=== PATIENT | male | born 1940 | race Caucasian/White ===

== ENCOUNTER 2021-08-17 11:20 | Emergency (ER) | payer OTHER ==
--- OUTSIDE RECORDS SUMMARY | 2021-08-17 11:34 | XMS REPORT | Continuity of Care Document ---
:1940 Author Organization [facility] t Address [address] [place] [address] Care Team Providers Name Role Phone Juana YODER Primary Care Physician Unavailable Goldfarb_R Attending Clinician Unavailable Jayleen Attending Clinician [phone] Lab, Fam Pob I Attending Clinician Unavailable Nyla FILTERATION OPERATOR Attending Clinician NYLA Attending Clinician Unavailable Goldfarb_R Admitting Clinician Unavailable Payers Payer Name Policy Type Policy Number Effective Date Expiration Date Bekah MENDIOLA (MEDICARE [id number] 2013 REPLACEMENT PPO) 00:00:00 COVID VACCINE ADMIN [id number] 2020-09-22 / TESTING 00:00:00 Problems This patient has no known problems. Allergies, Adverse Reactions, Alerts Allergy Allergy Status Severity Reaction(s) Onset Inactive Treating Comm ents Source Name Type Date Date Clinician No Known DA Active [facility] [place] [facility] 00:[facility]: [facility] No Known DA Active [facility]12 [place] [facility] NO KNOWN Drug Active Univers ALLERGIE Class it[facility] of [facility] Social History Social Habit Start Date Stop Date Quantity Comments Source Sex Assigned At Uni versity [facility] Smoking Status Start Date Stop Date Source Unknown if ever smoked [facility] Medications This patient has no known medications. Procedures This patient has no known procedures. Encounters Start End Encounter Admission Attending Care Care Encounter Source Date/Time Date/Time Type Type Clinicians Facility Department ID 2021-08-17 2021-08-17 Outpatient R [facility] [id number] 19:20:00 19:20:00 [facility] 2021-08-17 2021-08-17 Outpatient R [facility] [id number] [facility] 19:20:00 19:20:00 [id number] [facility] 2021-06-15 2021-06-15 Outpatient Goldfarb_R [facility] [id number] [place] 02:11:00 02:11:00 [id number] [facility] 2021-02-18 2021-02-18 Outpatient Goldfarb_R [facility] [id number] [place] 01:04:00 01:04:00 [id number] [facility] 2021-02-15 2021-02-15 Outpatient Goldfarb_R [facility] [id number] [place] 04:51:00 04:51:00 [id number] [facility] 2021-02-02 2021-02-02 Outpatient Goldfarb_R [facility] [id number] [place] 12:05:00 12:05:00 [id number] [facility] 2021-02-02 2021-02-02 Outpatient Jayleen, [facility]U [id number] 00:00:00 00:00:00 Elia [id number] 2021-01-03 2021-01-03 Outpatient Goldfarb_R [facility] [id number] [place] 11:10:00 11:10:00 [id number] [facility] 2021-01-03 2021-01-03 Outpatient Goldfarb_R [facility] [id number] [place] 11:10:00 11:10:00 [id number] [facility] 2020-12-21 2020-12-21 Outpatient Goldfarb_R [facility] [id number] [place] 05:36:00 05:36:00 [id number] [facility] 2020-12-21 2020-12-21 Outpatient Goldfarb_R HM[facility] [id number] [place] 05:36:00 05:36:00 [id number] [facility] 2020-12-21 2020-12-21 Outpatient Goldfarb_R HM[facility] 4255 [place] 05:36:00 05:36:00 [id number] [facility] 2020-12-02 2020-12-02 Outpatient Goldfarb_R HMU [facility] [id number] [place] 01:04:00 01:04:00 [id number] [facility] 2020-10-20 2020-10-20 Outpatient EL [facility] [id number] [facility] 00:00:00 00:00:00 2020-09-22 2020-09-22 Outpatient EL [facility] [id number] SLE 00:00:00 00:00:00 2020-08-22 2020-08-22 Laboratory Lab, [facility] Fam [facility]ob I [facility] 1.2. [id number] [facility] 18:22:28 18:42:28 [facility] [id number] [facility] [id number] Sid as Professio [phone] [place] [address] Office [address] 2020-08-22 2020-08-22 [facility] [id number] [facility] 18:40:00 18:40:00 [facility] Results Test Description Test Time Test Comments Results Result Comments Source GLUBED 2019-08-05 12:08:00 Test Item Value Reference Range Interpretation Comme nts GLUBED (test code = GLUBED) 147 mg/dL 60-125 H BASIC METABOLIC [id number] 07:15:00 Test Item Value Reference Range Interpretation Comments SODIUM (test code = 137 mmol/L 136-145 N NA) POTASSIUM (test code = 4.2 mmol/L 3.5-5.1 N K) CHLORIDE (test code = 101.0 mmol/L 98-107 N CL) CARBON DIOXIDE (test 25.7 mmol/L 21-32 N code = CO2) GLUCOSE (test code = 266 mg/dL 70-110 H GLU) BLOOD UREA NITROGEN 24 mg/dL 7-18 H (test code = BUN) GLOMERULAR FILTRATION 61.5 >60 Unit o f measure: RATE (test code = GFR) mL/mi n/1.73 [id number] Range:Healthy Adults >90 mL/min/1.73 m2 For Chronic Kidney Disease: St age II Mild Decrease in GFR 60-90 St age III Moderate Decrease in GFR 30-59 Stage IV Severe Decre ase in GFR 15- 29 Stage V Kidney Failure <15 CREATININE (test code 1.15 mg/dL 0.55-1.30 N = CREAT) CALCIUM (test code = 7.7 mg/dL 8.2-10.1 L CA) HGB [id number] 06:01:00 Test Item Value Reference Range Interpretation Comments HEMOGLOBIN (test code = HGB) 9.4 g/dL 12-16 L HEMATOCRIT (test code = HCT) 28.4 % 37-47 L [id number] 05:24:00 Test Item Value Reference Range Interpretation Comments GLUBED (test code = GLUBED) 258 mg/dL 60-125 H - XR PELVIS 1/2 [id number] 17:30:00 Patient Name: ANNALISE GODFREY Unit No: [id number] EXAMS: CPT CODE: [id number] XR PELVIS 1/2 VIEWS [id number] INTRAOPERATIVE LEG LENGTH FILM COMMENT: COMPARISON: Noprior exams available. In progress right hip replacement is noted. AP PORTABLE RIGHT HIP COMMENT: The patient is status post joint replacement which is articulating normally. at 1730 Reported and signed by: Christopher Cornejo MD CC: Sebastian Hernandez MD Technologist: REGINA RICH (RT.R) Transcribed D/ (1730) t.SDR.L [facility] NAME: ANNALISE GODFREY [address] [facility] PHYS: Sebastian Erazo MD : 1940 AGE: 78 SEX: M [place], [place] [address] LOC: Y.305 A PHONE #: [phone] EXAM DATE: 08/04/2019 STATUS: DIS IN FAX #: [phone] RAD #: D/C DT 08/05/2019 PAGE 1 Signed Report Patient Name: ANNALISE GODFREY Unit No: [id number] EXAMS: CPTCODE: [id number] XR PELVIS 1/2 VIEWS 41082 <Continued> Orig Print D/T: S: 08/06/2019 (0710) [facility] NAME: ANNALISE GODFREY [address] [facility] PHYS: Sebastian Erazo MD : 1940 AGE: 78 SEX: M [place], [place] [address] LOC: Y.305 A PHONE #: [phone] EXAM DATE: 08/04/2019 STATUS: DIS IN FAX #: [phone] RAD #: D/C DT 08/05/2019 PAGE 2 Signed Report- XR PELVIS 1/2 [id number] 17:30:00 Patient Name: ANNALISE GODFREY Unit No: [id number] EXAMS: CPT CODE: [id number] XR PELVIS 1/2 VIEWS 12799 INTRAOPERATIVE LEG LENGTH FILM COMMENT: COMPARISON: Noprior exams available. In progress right hip replacement is noted. AP PORTABLE RIGHT HIP COMMENT: The patient is status post joint replacement which is articulating normally. at 1730 Reported and signed by: Christopher Cornejo MD CC: Sebastian Hernandez MD Technologist: REGINA RICH (RT.R) Transcribed D/ (1970) tLowSDR.JCL [facility] NAME: ANNALISE GODFREY [address] [facility] PHYS: Sebastian Erazo MD : 1940 AGE: 78 SEX: M [place], [place] [address] LOC: Y.305 A PHONE #: [phone] EXAM DATE: 08/04/2019 STATUS: DIS IN FAX #: [phone] RAD #: D/C DT 08/05/2019 PAGE 1 Signed Report Patient Name: ANNALISE GODFREY Unit No: [id number] EXAMS: CPTCODE: [id number] XR PELVIS 1/2 VIEWS 47727 <Continued> Orig Print D/T: S: 08/06/2019 (0710) [facility] NAME: ANNALISE GODFREY [address] [facility] PHYS: Sebastian Erazo MD : 1940 AGE: 78 SEX: M [place], [place] [address] LOC: YSouth A PHONE #: [phone] EXAM DATE: 08/04/2019 STATUS: DIS IN FAX #: [phone] RAD #: D/C DT 08/05/2019 PAGE 2 Signed ReportGLYCOSYLATED HEMOGLOBIN (HA1C)2019-07-21 15:01:00 Test Item Value Reference Range Interpretation Comments GLYCOSYLATED 6.5 % 4.8-5.9 H Any condition t hat shortens HEMOGLOBIN (HA1C) erythocyte survival or (test code = GLYHGB) decreas esmean erythrocyte age (e.g., ben very from acute blood los s,hemolytic anemai) will fa lsely lower HGBA1c resultsr egardless of the method used . HGBA1c results frompat ients with HbSS, HbCC and HbSc must be interpreted wit hcaution given the patho logical processes, incl uding anemia,increase d red cell turnover, trans fusion requirements, t hatadversely impact HGBA1c a s a marker of long-term glycemiccontrol . Alternative for ms of testing such as fructosaminesho uld be considered for these patients.Any co ndition that shortens erytho cyte survival or dec reasesmean erythrocyte age (e.g., recovery from a cute blood loss,hemolytic anemia) will falsely lower H GBA1c resultsregardle ss of the method used. H GBA1c results from varun kirkpatrick HbSS, HbCC, and HbSc must be interpreted with cautiongiven th e pathological pr ocesses, including anemi a,increased red cell turnov er, transfusion req uirements, thatadversely i mpact HGBA1c as a marker of long-term glycemiccontrol . Alternative for ms of testing such as fructosaminesho uld be considered for these patients.DONE A T: [facility] [address] [place] [address] GLYCOSYLATED HEMOGLOBIN (HA1C)2019-07-21 15:01:00 Test Item Value Reference Range Interpretation Comments GLYCOSYLATED 6.5 % 4.8-5.9 H Any condition t hat shortens HEMOGLOBIN (HA1C) erythocyte survival or (test code = GLYHGB) decreas esmean erythrocyte age (e.g., ben very from acute blood los s,hemolytic anemia) will fa lsely lower HGBA1c resultsr egardless of the method used . HGBA1c results from varun kirkpatrick HbSS, HbCC, and HbSc must be interpreted with cautiongiven th e pathological pr ocesses, including anemi a,increased red cell turnov er, transfusion req uirements, thatadversely i mpact HGBA1c as a marker of long-term glycemiccontrol . Alternative for ms of testing such as fructosaminesho uld be considered for these patients. COMPREHENSIVE METABOLIC [id number] 13:00:00 Test Item Value Reference Range Interpretation Comments SODIUM (test code = 139 mmol/L 136-145 N NA) POTASSIUM (test code = 4.5 mmol/L 3.5-5.1 N K) CHLORIDE (test code = 101.0 mmol/L 98-107 N CL) CARBON DIOXIDE (test 24.6 mmol/L 21-32 N code = CO2) GLUCOSE (test code = 118 mg/dL 70-110 H GLU) BLOOD UREA NITROGEN 23 mg/dL 7-18 H (test code = BUN) GLOMERULAR FILTRATION 66.1 >60 Unit o f measure: RATE (test code = GFR) mL/mi n/1.73 [id number] Range:Healthy Adults >90 mL/min/1.73 m2 For Chronic Kidney Disease: St age II Mild Decrease in GFR 60-90 St age III Moderate Decrease in GFR 30-59 Stage IV Severe Decre ase in GFR 15- 29 Stage V Kidney Failure <15 CREATININE (test code 1.08 mg/dL 0.55-1.30 N = CREAT) TOTAL PROTEIN (test 7.2 g/dL 6.4-8.2 N code = PROT) ALBUMIN (test code = 3.9 g/dL 3.4-5.0 N ALB) GLOBULIN (test code = 3.3 g/dL 2.2-4.2 N GLOB) ALBUMIN/GLOBULIN RATIO 1.2 0.7-2.0 N (test code = A/G) CALCIUM (test code = 9.4 mg/dL 8.2-10.1 N CA) BILIRUBIN TOTAL (test 0.74 mg/dL 0.2-1.00 N code = BILT) SGOT/AST (test code = 24.0 U/L 15-37 N AST) SGPT/ALT (test code = 36.0 U/L 12-78 N Please note new ALT) normal range. ALKALINE PHOSPHATASE 60 U/L 46-116 N TOTAL (test code = ALKP) CBC W/AUTO [id number] 12:50:00 Test Item Value Reference Range Interpretation Comments WHITE BLOOD CELL (test code = WBC) 5.4 K/mm3 5.7-10.5 L RED BLOOD CELL (test code = RBC) 4.42 M/mm3 4.2-5.4 N HEMOGLOBIN (test code = HGB) 13.3 g/dL 12-16 N HEMATOCRIT (test code = HCT) 40.5 % 37-47 N MEAN CELL VOLUME (test code = MCV) 92 fL 80-98 N MEAN CELL HGB (test code = MCH) 30.1 pg 27-34 N MEAN CELL HGB CONCENTRATION (test 32.8 g/dL 30.8-34.1 N code = MCHC) RED CELL DISTRIBUTION WIDTH (test 13.2 % 11-16 N code = RDW) PLT (test code = PLT) 283 K/mm3 130-400 N MEAN PLATELET VOLUME (test code = 9.0 fL 8.9-12.1 N MPV) NEUTROPHIL % (test code = NT%) 65.4 % 45-70 N LYMPHOCYTE % (test code = LY%) 18.3 % 20-40 L MONOCYTE % (test code = MO%) 13.5 % 3-10 H EOSINOPHIL % (test code = EO%) 1.7 % 1-5 N BASOPHIL % (test code = BA%) 0.4 % 0.0-1.1 N NEUTROPHIL # (test code = NT#) 3.53 K/mm3 2.00-7.50 N LYMPHOCYTE # (test code = LY#) 0.99 K/mm3 1.50-4.00 L MONOCYTE # (test code = MO#) 0.73 K/mm3 0.2-0.8 N EOSINOPHIL # (test code = EO#) 0.09 K/mm3 0.04-0.4 N BASOPHIL # (test code = BA#) 0.02 K/mm3 0.02-0.10 N MANUAL DIFF REQUIRED (test code = NO MANUAL DIFF MDIFF) NUCLEATED RED BLOOD CELL (test 0 % 0-0 N code = NRBC) GLYCOSYLATED HEMOGLOBIN (HA1C)2019-04-07 19:03:00 Test Item Value Reference Range Interpretation Comments GLYCOSYLATED 6.6 % 4.8-5.9 H Any condition t hat shortens HEMOGLOBIN (HA1C) erythocyte survival or (test code = GLYHGB) decreas esmean erythrocyte age (e.g., ben very from acute blood los s,hemolytic anemai) will fa lsely lower HGBA1c resultsr egardless of the method used . HGBA1c results frompat ients with HbSS, HbCC and HbSc must be interpreted wit hcaution given the patho logical processes, incl uding anemia,increase d red cell turnover, trans fusion requirements, t hatadversely impact HGBA1c a s a marker of long-term glycemiccontrol . Alternative for ms of testing such as fructosaminesho uld be considered for these patients.Any co ndition that shortens erytho cyte survival or dec reasesmean erythrocyte age (e.g., recovery from a cute blood loss,hemolytic anemia) will falsely lower H GBA1c resultsregardle ss of the method used. H GBA1c results from varun burnettith HbSS, HbCC, and HbSc must be interpreted with cautiongiven th e pathological pr ocesses, including anemi a,increased red cell turnov er, transfusion req uirements, thatadversely i mpact HGBA1c as a marker of long-term glycemiccontrol . Alternative for ms of testing such as fructosaminesho uld be considered for these patients.DONE A T: [facility] [address] [place] [address] GLYCOSYLATED HEMOGLOBIN (HA1C)2019-04-07 19:02:00 Test Item Value Reference Range Interpretation Comments GLYCOSYLATED 6.6 % 4.8-5.9 H Any condition t hat shortens HEMOGLOBIN (HA1C) erythocyte survival or (test code = GLYHGB) decreas esmean erythrocyte age (e.g., ben very from acute blood los s,hemolytic anemia) will fa lsely lower HGBA1c resultsr egardless of the method used . HGBA1c results from varun kaya HbSS, HbCC, and HbSc must be interpreted with cautiongiven th e pathological pr ocesses, including anemi a,increased red cell turnov er, transfusion req uirements, thatadversely i mpact HGBA1c as a marker of long-term glycemiccontrol . Alternative for ms of testing such as fructosaminesho uld be considered for these patients. COMPREHENSIVE METABOLIC [id number] 16:42:00 Test Item Value Reference Range Interpretation Comments SODIUM (test code = 138 mmol/L 136-145 N NA) POTASSIUM (test code = 4.2 mmol/L 3.5-5.1 N K) CHLORIDE (test code = 101.0 mmol/L 98-107 N CL) CARBON DIOXIDE (test 27.2 mmol/L 21-32 N code = CO2) GLUCOSE (test code = 252 mg/dL 70-110 H GLU) BLOOD UREA NITROGEN 17 mg/dL 7-18 N (test code = BUN) GLOMERULAR FILTRATION 75.8 >60 Unit o f measure: RATE (test code = GFR) mL/mi n/1.73 [id number] Range:Healthy Adults >90 mL/min/1.73 m2 For Chronic Kidney Disease: St age II Mild Decrease in GFR 60-90 St age III Moderate Decrease in GFR 30-59 Stage IV Severe Decre ase in GFR 15- 29 Stage V Kidney Failure <15 CREATININE (test code 0.96 mg/dL 0.55-1.30 N = CREAT) TOTAL PROTEIN (test 6.8 g/dL 6.4-8.2 N code = PROT) ALBUMIN (test code = 3.8 g/dL 3.4-5.0 N ALB) GLOBULIN (test code = 3.0 g/dL 2.2-4.2 N GLOB) ALBUMIN/GLOBULIN RATIO 1.3 0.7-2.0 N (test code = A/G) CALCIUM (test code = 9.0 mg/dL 8.2-10.1 N CA) BILIRUBIN TOTAL (test 0.79 mg/dL 0.2-1.00 N code = BILT) SGOT/AST (test code = 19.0 U/L 15-37 N AST) SGPT/ALT (test code = 30.0 U/L 12-78 N Please note new ALT) normal range. ALKALINE PHOSPHATASE 56 U/L 46-116 N TOTAL (test code = ALKP) CBC W/AUTO [id number] 16:07:00 Test Item Value Reference Range Interpretation Comments WHITE BLOOD CELL (test code = WBC) 5.6 K/mm3 5.7-10.5 L RED BLOOD CELL (test code = RBC) 4.37 M/mm3 4.2-5.4 N HEMOGLOBIN (test code = HGB) 13.2 g/dL 12-16 N HEMATOCRIT (test code = HCT) 40.0 % 37-47 N MEAN CELL VOLUME (test code = MCV) 92 fL 80-98 N MEAN CELL HGB (test code = MCH) 30.2 pg 27-34 N MEAN CELL HGB CONCENTRATION (test 33.0 g/dL 30.8-34.1 N code = MCHC) RED CELL DISTRIBUTION WIDTH (test 13.3 % 11-16 N code = RDW) PLT (test code = PLT) 242 K/mm3 130-400 N MEAN PLATELET VOLUME (test code = 8.8 fL 8.9-12.1 L MPV) NEUTROPHIL % (test code = NT%) 68.1 % 45-70 N LYMPHOCYTE % (test code = LY%) 16.1 % 20-40 L MONOCYTE % (test code = MO%) 12.9 % 3-10 H EOSINOPHIL % (test code = EO%) 1.3 % 1-5 N BASOPHIL % (test code = BA%) 0.5 % 0.0-1.1 N NEUTROPHIL # (test code = NT#) 3.82 K/mm3 2.00-7.50 N LYMPHOCYTE # (test code = LY#) 0.90 K/mm3 1.50-4.00 L MONOCYTE # (test code = MO#) 0.72 K/mm3 0.2-0.8 N EOSINOPHIL # (test code = EO#) 0.07 K/mm3 0.04-0.4 N BASOPHIL # (test code = BA#) 0.03 K/mm3 0.02-0.10 N MANUAL DIFF REQUIRED (test code = NO MANUAL DIFF MDIFF) NUCLEATED RED BLOOD CELL (test 0 % 0-0 N code = NRBC) CBC W/AUTO [id number] 16:07:00 Test Item Value Reference Range Interpretation Comments WHITE BLOOD CELL (test code = WBC) 5.6 K/mm3 5.7-10.5 L RED BLOOD CELL (test code = RBC) 4.37 M/mm3 4.2-5.4 N HEMOGLOBIN (test code = HGB) 13.2 g/dL 12-16 N HEMATOCRIT (test code = HCT) 40.0 % 37-47 N MEAN CELL VOLUME (test code = MCV) 92 fL 80-98 N MEAN CELL HGB (test code = MCH) 30.2 pg 27-34 N MEAN CELL HGB CONCENTRATION (test 33.0 g/dL 30.8-34.1 N code = MCHC) RED CELL DISTRIBUTION WIDTH (test 13.3 % 11-16 N code = RDW) PLT (test code = PLT) 242 K/mm3 130-400 N MEAN PLATELET VOLUME (test code = 8.8 fL 8.9-12.1 L MPV) NEUTROPHIL % (test code = NT%) 68.1 % 45-70 N LYMPHOCYTE % (test code = LY%) 16.1 % 20-40 L MONOCYTE % (test code = MO%) 12.9 % 3-10 H EOSINOPHIL % (test code = EO%) 1.3 % 1-5 N BASOPHIL % (test code = BA%) 0.5 % 0.0-1.1 N NEUTROPHIL # (test code = NT#) 3.82 K/mm3 2.00-7.50 N LYMPHOCYTE # (test code = LY#) 0.90 K/mm3 1.50-4.00 L MONOCYTE # (test code = MO#) 0.72 K/mm3 0.2-0.8 N EOSINOPHIL # (test code = EO#) 0.07 K/mm3 0.04-0.4 N BASOPHIL # (test code = BA#) 0.03 K/mm3 0.02-0.10 N MANUAL DIFF REQUIRED (test code = NO MANUAL DIFF MDIFF) NUCLEATED RED BLOOD CELL (test 0 % 0-0 N code = NRBC)
--- NOTE | 2021-08-17 13:25 | ER ---
Nurse's Notes [facility] Name: Jensen Wang Age: 81 yrs Sex: Male : 1940 Arrival Date: 08/17/2021 Time: : Bed 11 Private MD: Jack Lopez Diagnosis: SARS-associated coronavirus as the cause of diseases classified elsewhere Presentation: 08/17 11:55 Chief complaint: Patient states: Sore throat and cough x 2 days. Coronavirus screen: jl7 cough unrelated to allergies, sore throat, Client presents with at least one sign or symptom that may indicate coronavirus-19. Standard/surgical mask placed on the client. Provider contacted for isolation considerations. Ebola Screen: No symptoms or risks identified at this time. Initial Sepsis Screen: Does the patient meet any 2 criteria? No. Patient's initial sepsis screen is negative. Does the patient have a suspected source of infection? No. Patient's initial sepsis screen is negative. Risk Assessment: Do you want to hurt yourself or someone else? Patient reports no desire to harm self or others. Onset of symptoms was August 15, 2021. Care prior to arrival: None. 11:55 Method Of Arrival: Ambulatory jl7 11:55 Acuity: EDWIN 4 jl7 Triage Assessment: 11:56 General: Appears in no apparent distress. uncomfortable, Behavior is calm, cooperative, jl7 appropriate for age. Pain: Denies pain. Neuro: Level of Consciousness is awake, alert, obeys commands, Oriented to person, place, time, situation. Cardiovascular: Patient's skin is warm and dry. Respiratory: Airway is patent Respiratory effort is even, unlabored, Respiratory pattern is regular, symmetrical. Derm: Skin is pink, warm \T\ dry. Historical: - Allergies: 11:56 No Known Allergies; jl7 - Home Meds: 11:56 metformin 1,000 mg Oral tab 1 tab 2 times per day [Active]; Celebrex 200 mg Oral cap 1 jl7 cap 2 times per day [Active]; glipizide 5 mg Oral tab 1 tab once daily [Active]; atorvastatin 10 mg oral tab 1 tab once daily [Active]; losartan 50 mg oral tab 1 tab once daily [Active]; hydrochlorothiazide 12.5 mg Oral cap 1 cap once daily [Active]; allopurinol 300 mg Oral tab 1 tab once daily [Active]; LithoLyte 10 mEq oral pwpk [Active]; megestrol 40 mg Oral tab 1 tab [Active]; - PMHx: 11:56 Diabetes mellitus; Hypercholesterolemia; Gout; Hypertensive disorder; jl7 - Immunization history:: Adult Immunizations up to date, Client reports receiving the 2nd dose of the Covid vaccine. - Social history:: Smoking status: Patient denies any tobacco usage or history of. Assessment: 13:34 Reassessment: Patient appears in no apparent distress at this time. Patient and/or ss family updated on plan of care and expected duration. Pain level reassessed. Patient is alert, oriented x 3, equal unlabored respirations, skin warm/dry/pink. Vital Signs: 11:55 BP 139 / 82; Pulse 89; Resp 17; Temp 97; Pulse Ox 99% on R/A; Weight 78.02 kg; Height 5 jl7 ft. 9 in. (175.26 cm); Pain 0/10; 11:55 Body Mass Index 25.40 (78.02 kg, 175.26 cm) jl7 ED Course: 11:23 Patient arrived in ED. mr 11:23 Jack Lopez MD is Private Physician. mr 11:55 London Pryor RN is Primary Nurse. jl7 11:56 Triage completed. jl7 11:56 Arm band placed on right wrist. jl7 11:57 Charbel Martines PA is PHCP. jr8 11:57 Jorge Alberto Monroe MD is Attending Physician. jr8 13:25 Jack Lopez MD is Referral Physician. jr8 13:34 No provider procedures requiring assistance completed. Patient did not have IV access ss during this emergency room visit. Administered Medications: No medications were administered Outcome: 13:25 Discharge ordered by . jr8 13:34 Discharged to home ambulatory. ss 13:34 Condition: good 13:34 Discharge instructions given to patient, Instructed on discharge instructions, follow up and referral plans. Demonstrated understanding of instructions, follow-up care, Prescriptions given X 2. 13:34 Patient left the ED. ss Signatures: JaffeSamantha mr TatumDestini, RN RN Charbel Martines PA PA jr8 London Pryor RN RN jl7
--- NOTE | 2021-08-17 13:25 | EDPHYS ---
Physician Documentation [facility] Name: Jensen Wang Age: 81 yrs Sex: Male : 1940 Arrival Date: 08/17/2021 Time: : Bed 11 Private MD: Jack Lopez ED Physician Jorge Alberto Monroe HPI: 08/17 12:57 This 81 yrs old Male presents to ER via Ambulatory with complaints of Flu Symptoms. jr8 12:57 The patient has not experienced similar symptoms in the past. The patient has not jr8 recently seen a physician. An 81-year-old male that presented to the emergency room with a few day history of flulike symptoms. Stated that he has rhinorrhea, postnasal congestion, cough, body aches, with subjective fevers.. Historical: - Allergies: 11:56 No Known Allergies; jl7 - Home Meds: 11:56 metformin 1,000 mg Oral tab 1 tab 2 times per day [Active]; Celebrex 200 mg Oral cap 1 jl7 cap 2 times per day [Active]; glipizide 5 mg Oral tab 1 tab once daily [Active]; atorvastatin 10 mg oral tab 1 tab once daily [Active]; losartan 50 mg oral tab 1 tab once daily [Active]; hydrochlorothiazide 12.5 mg Oral cap 1 cap once daily [Active]; allopurinol 300 mg Oral tab 1 tab once daily [Active]; LithoLyte 10 mEq oral pwpk [Active]; megestrol 40 mg Oral tab 1 tab [Active]; - PMHx: 11:56 Diabetes mellitus; Hypercholesterolemia; Gout; Hypertensive disorder; jl7 - Immunization history:: Adult Immunizations up to date, Client reports receiving the 2nd dose of the Covid vaccine. - Social history:: Smoking status: Patient denies any tobacco usage or history of. ROS: 12:57 Eyes: Negative for injury, pain, redness, and discharge, Neck: Negative for injury, jr8 pain, and swelling, Cardiovascular: Negative for chest pain, palpitations, and edema, Abdomen/GI: Negative for abdominal pain, nausea, vomiting, diarrhea, and constipation, Back: Negative for injury and pain, MS/Extremity: Negative for injury and deformity, Skin: Negative for injury, rash, and discoloration, Neuro: Negative for headache, weakness, numbness, tingling, and seizure. 12:57 Constitutional: Positive for body aches. 12:57 ENT: Positive for rhinorrhea, sinus congestion, sore throat. 12:57 Respiratory: Positive for cough, Negative for dyspnea on exertion, shortness of breath, sputum production, wheezing. Exam: 12:57 Eyes: Pupils equal round and reactive to light, extra-ocular motions intact. Lids and jr8 lashes normal. Conjunctiva and sclera are non-icteric and not injected. Cornea within normal limits. Periorbital areas with no swelling, redness, or edema. ENT: Nares patent. No nasal discharge, no septal abnormalities noted. Tympanic membranes are normal and external auditory canals are clear. Oropharynx with no redness, swelling, or masses, exudates, or evidence of obstruction, uvula midline. Mucous membranes moist. Neck: Trachea midline, no thyromegaly or masses palpated, and no cervical lymphadenopathy. Supple, full range of motion without nuchal rigidity, or vertebral point tenderness. No Meningismus. Cardiovascular: Regular rate and rhythm with a normal S1 and S2. No gallops, murmurs, or rubs. Normal PMI, no JVD. No pulse deficits. Respiratory: Lungs have equal breath sounds bilaterally, clear to auscultation and percussion. No rales, rhonchi or wheezes noted. No increased work of breathing, no retractions or nasal flaring. Abdomen/GI: Soft, non-tender, with normal bowel sounds. No distension or tympany. No guarding or rebound. No evidence of tenderness throughout. Back: No spinal tenderness. No costovertebral tenderness. Full range of motion. Skin: Warm, dry with normal turgor. Normal color with no rashes, no lesions, and no evidence of cellulitis. MS/ Extremity: Pulses equal, no cyanosis. Neurovascular intact. Full, normal range of motion. Neuro: Awake and alert, GCS 15, oriented to person, place, time, and situation. Cranial nerves II-XII grossly intact. Motor strength 5/5 in all extremities. Sensory grossly intact. Vital Signs: 11:55 BP 139 / 82; Pulse 89; Resp 17; Temp 97; Pulse Ox 99% on R/A; Weight 78.02 kg; Height 5 jl7 ft. 9 in. (175.26 cm); Pain 0/10; 11:55 Body Mass Index 25.40 (78.02 kg, 175.26 cm) jl7 MDM: 11:57 Patient medically screened. jr8 13:24 Data reviewed: vital signs, nurses notes, lab test result(s), and as a result, I will jr8 discharge patient. Data interpreted: Pulse oximetry: on room air is 99 %. Interpretation: normal. Counseling: I had a detailed discussion with the patient and/or guardian regarding: the historical points, exam findings, and any diagnostic results supporting the discharge/admit diagnosis, lab results, the need for outpatient follow up, a family practitioner, to return to the emergency department if symptoms worsen or persist or if there are any questions or concerns that arise at home. 08/17 11:59 Order name: Strep; Complete Time: 12:40 jr8 08/17 11:59 Order name: SARS-COV-2 RT PCR (Document "Date of Onset" if Symptomatic); Complete Time: jr8 17:33 08/17 12:37 Order name: Throat Culture EDMS Administered Medications: No medications were administered Disposition: 17:04 Co-signature as Attending Physician, Jorge Alberto Monroe MD I agree with the assessment and kdr plan of care. Disposition Summary: 08/17/21 13:25 Discharge Ordered Location: Home jr8 Problem: new jr8 Symptoms: have improved jr8 Condition: Stable jr8 Diagnosis - SARS-associated coronavirus as the cause of diseases classified elsewhere jr8 Followup: jr8 - With: Jack Lopez MD - When: 1 week - Reason: Recheck today's complaints, Continuance of care, Re-evaluation by your physician Discharge Instructions: - Discharge Summary Sheet jr8 - COVID-19 jr8 - 10 Things You Can Do to Manage Your COVID-19 Symptoms at Home - [facility] [place][NOTE 3] jr8 - COVID-19: Quarantine vs. Isolation - [facility] [place][NOTE 3] jr8 Forms: - Medication Reconciliation Form jr8 - Thank You Letter jr8 - Antibiotic Education jr8 - Prescription Opioid Use jr8 Prescriptions: - promethazine-DM 6.25-15 mg/5 mL Oral syrup - take 5 milliliter by ORAL route every 6 hours As needed as needed, not to jr8 exceed 30 mL in 24 hours; 110 milliliter; Refills: 0, Product Selection Permitted - Tessalon Perles 100 mg Oral Capsule - take 1 capsule by ORAL route every 8 hours As needed; 15 capsule; Refills: 0, jr8 Product Selection Permitted Signatures: Dispatcher [employer] EDMS Jorge Alberto Monroe MD MD kdr Roszak, Josh, PA PA jr8 London Pryor RN RN jl7
[2021-08-17 13:38] VITALS: BP 139/82; TEMP 97; O2SAT 99
== END 2021-08-17 13:34 | disposition home or self-care (01) ==
LOC: ER 11:20
DX: U07.1 COVID-19 (principal); I10 Essential (primary) hypertension; E11.9 Type 2 diabetes mellitus without complications
CPT/HCPCS: 87070; 87081; 99282; U0003

== ENCOUNTER 2021-11-08 07:07 | Day surgery (SDC) | payer OTHER ==
[2021-11-07 08:39] LABS: Absolute Lymphocytes (CBC) 0.9 K/uL (0.7-4.9); Hematocrit 38.5 % (39.6-49.0); Lymphocytes % 15.8 % (15.3-44.8); MPV 6.4 fL (7.6-11.3); RBC Red Blood Cell Count 4.11 M/uL (4.33-5.43)
[2021-11-07 08:57] LABS: Potassium 3.9 mmol/L (3.5-5.1)
--- NOTE | 2021-11-07 09:03 | RAD REPORT ---
EXAM DESCRIPTION: Darby Sloan (2 Views)11/07/2021 8:43 am CLINICAL HISTORY: Preop for neck surgery. Hypertension COMPARISON: 2012 FINDINGS: The lungs appear clear of acute infiltrate. The heart is normal size IMPRESSION: No acute abnormalities displayed
[2021-11-08] MEDS ORDERED: CEFAZOLIN SODIUM 1 GM/VIAL ONE (07:36)
[2021-11-08] MEDS ORDERED: NA CHLORIDE 0.9% 1,000 ML ONE (07:36)
[2021-11-08] MEDS ORDERED: BUPIVACAINE 0.5% PF 10 ML VIAL ONE (08:19)
[2021-11-08] MEDS ORDERED: FENTANYL CITR 100 MCG/2 ML ONE (08:35)
[2021-11-08] MEDS ORDERED: propofoL 200 MG/20 ML VIAL IV ONE (08:35)
[2021-11-08] MEDS ORDERED: Mastisol Adhesive Liq ONE (09:16)
--- NOTE | 2021-11-08 09:27 | P.OP ---
Sponge Diver: NONE,NONE Preoperative diagnosis: Left neck mass, rule out skin cancer Postoperative diagnosis: Same Primary procedure: Wide excision left neck mass 5 x 3 cm with layered closure Secondary procedure: Frozen section Anesthesia: MAC Estimated blood loss: Minimal Specimen: Left neck mass Findings: As above Operative Technique: Patient brought to the OR and placed in the supine position. MAC anesthesia begun. Patient prepped draped in usual sterile fashion. Marcaine 0.5% infiltrated locally. 15 blade used to make a 5 x 3 cm incision around this mass that was raised with necrotic center. Subcutaneous tissue divided and the entire mass excised and sent to pathology for frozen section. Frozen section revealed negative margins. Findings consistent with skin cancer. Wound irrigated and bleeding controlled with cautery. Flaps created. 2-0 chromic used to close subcutaneous tissue and 3-0 chromic used to close skin. Sterile dressing applied. Patient tolerated the procedure in stable condition and taken to recovery room in good general condition. Complications: None Transferred to: Recovery Room Condition: Good
[2021-11-08] MEDS ORDERED: HYDROCODONE/APAP 7.5/325 MG TAB PO PRN (09:31)
[2021-11-08 10:08] VITALS: BP 132/62; TEMP 97.5; O2SAT 100
== END 2021-11-08 10:40 | disposition home or self-care (01) ==
LOC: OR 07:07
PROVIDERS: ATTEND Surgery
PROC: 0JB50ZZ Excision of Left Neck Subcutaneous Tissue and Fascia, Open Approach (ICD-10-PCS; principal; 2021-11-08 08:15)
DX: C44.42 Squamous cell carcinoma of skin of scalp and neck (principal)
CPT/HCPCS: 85025; 80048; 36415; 82947; 88331; 88332; 88305; 71046; 11626; J2704; J3010; J7030; J0690

== ENCOUNTER 2023-03-22 20:26 | Emergency (ER) | payer OTHER ==
--- OUTSIDE RECORDS SUMMARY | 2023-03-22 20:31 | XMS REPORT | Continuity of Care Document ---
:1940 Author Organization [facility] t Address [address] [place] [address] [place] [id number] Care Team Providers Name Role Phone ADRIANNE YODER Primary Care Physician Unavailable Ryan Osuna Attending Clinician Teena Attending Clinician Unavailable Elia Clemens Attending Clinician [phone] TIMBO WEN Attending Clinician Unavailable Lab, Adc Fam Pob I Attending Clinician Unavailable Maria A Paris Attending Clinician MARIA A REDMOND Attending Clinician Unavailable Teena Admitting Clinician Unavailable TIMBO WEN Admitting Clinician Unavailable Payers Payer Name Policy Type Policy Number Effective Date Expiration Date S jareth AECARY (MEDICARE [id number] 2013 REPLACEMENT PPO) 00:00:00 COVID VACCINE ADMIN [id number] 2020-09-22 / TESTING 00:00:00 Problems Condition Condition Condition Status Onset Resolution Last Treating Co mments Source Name Details Category Date Date Treatment Clinician Date S/P S/P Disease Active [facility] cervical cervical 2-23 st spinal spinal 00:00: Hospita fusion fusion 00 l Urinary Urinary Problem Active 2018-08 [place] bladder Bladder 1-07 [facility] stone Stone 00:00: Urology 00 Lower Lower Problem Active 2018-08 [place] urinary Urinary 1-07 [facility] tract Tract 00:00: Urology infectious Infectious 00 disease Disease Osteopenia Osteopenia Problem Active 2018-08 [place] 1-07 [facility] 00:00: Urology 00 BPH with BPH with Disease Active 2018-08 [place] di urinary urinary 0-22 st obstructio obstructio 00:00: Ho spita n n 00 l Carcinoma Carcinoma Problem Active 2018-08 Denise ston of of 0-15 [facility] prostate Prostate 00:00: Urolog y 00 Will Will Problem Active [place] hematuria Hematuria 9-17 [facility] o 00:00: Urology 00 Lower Lower Problem Active [place] urinary Urinary 9-17 [facility] tract Tract 00:00: Urology symptoms Symptoms 00 due to Due to benign Benign prostatic Prostatic hypertroph Hypertroph y y Malignant Malignant Problem Resolve 2022-06-01 Memoria tumor of tumor of d 04:06:49 l prostate prostate Bob n (disorder) (disorder) Resolved Problem 06/01/2022 [facility] 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 [facility]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 Herm sylvester (disorder) (disorder) Active Problem 01/04/2023 [facility] [place] 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 14:28:04 l s s Jose (disorder) (disorder) Active Problem 01/04/2023 [facility] Diabetes Diabetes Problem Active 2023-01-04 [facility] mellitus mellitus 14:28:04 l (disorder) (disorder) He rmann Active Problem 01/04/2023 [facility] Hyperlipid Hyperlipi Problem Active 2023-01-04 [facility] emia demia 14:28:04 l (disorder) (disorder) He rmann Active Problem 01/04/2023 [facility] Hypertensi Hypertens Problem Active 2023-01-04 Memoria ve nova 14:28:04 l disorder, disorder, Herm sylvester systemic systemic arterial arterial (disorder) (disorder) Active Problem 01/04/2023 [facility] Hypothyroi Hypothyro Problem Active 2023-01-04 [facility] dism idism 14:28:04 l (disorder) (disorder) He rmann Active Problem 01/04/2023 [facility] 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 14:28:04 l s s Jose (disorder) (disorder) Active Problem 01/04/2023 [facility] [place] Recurrent Recurrent Problem Active 2023-01-04 Memoria falls falls 14:28:04 l (finding) (finding) Herm sylvester Active Problem 01/04/2023 [facility] 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 14:28:04 l in in [place] cervical cervical region region (disorder) (disorder) Active Problem 01/04/2023 [facility] Tremor Tremor Problem Active 2023-01-04 Lon mirza (finding) (finding) 14:28:04 l Active Jose Problem 01/04/2023 [facility] 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 Bob n (disorder) (disorder) Active Problem 01/04/2023 [facility] [place] Paresthesi Paresthes Problem Active 2023-01-04 Memoria a ia 14:28:04 l (finding) (finding) Herm sylvester Active Problem 01/04/2023 [facility] [place] 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 14:28:04 l of lumbar of lumbar Herm sylvester region region (disorder) (disorder) Active Problem 01/04/2023 [facility] [place] Allergies, Adverse Reactions, Alerts Allergy Allergy Status Severity Reaction(s) Onset Inactive Treating Comm ents Source Name Type Date Date Clinician No Known DA Active U [facility] Allerg[facility] 04-07 [place] s 00:00: Beltrán 00 [facility] No Known DA Active U [facility] Allergie 04-12 [place] s 00:00: Orthope 00 dic Hospita l NO KNOWN Drug Active Univers ALLERGIE Class [facility]y [facility] S [facility] No Known No Known Active Memori a Medicati Medicati l on on Jose Allergie Allergie s s Family History Family Member Diagnosis Comments Start Date Stop Date Source Natural father Heart disease [facility] Natural father Hypertension [facility] Natural father Stroke [facility] Natural mother Heart disease [facility] Natural sister Cancer [facility] Natural sister Diabetes [facility] Social History Social Habit Start Date Stop Date Quantity Comments Source Gender identity [facility] Sexual orientation Method t [facility] Alcohol intake 2021-10-20 2021-10-20 Ex-drinker Worship 00:00:00 00:00:00 (finding) Hospital History of Social 2021-10-20 2021-10-[address] function 00:00:00 00:00:00 Hospital Tobacco use and 2019-06-09 2019-06-09 Smokeless Worship exposure 00:00:00 00:00:00 tobacco non-user Hospital Sex Assigned At [birth year] GR[facility] Crowe 00:00:00 [facility]:00 [facility] Smoking Status Start Date Stop Date Source Unknown if ever smoked [facility] Tobacco smoking status [facility] Medications Ordered Filled Start Stop Current Ordering Indication Dosage Frequency Signature Comments Components Source Medication Medication Date Date Medication? Clinician (SIG) Name Name Issi 60 Jacia 60 No Jacia 60 [place] mg/mL mg/mL 2-23 mg/mL [facility] subcutaneou subcutaneou 14:15: subcutaneo Urology s s 55 us syringeInje syringeInje syringeInj ct [address] 1 mL by ect 1 mL subcutaneou subcutaneou by s route. s route. subcutaneo us route. megestrol Yes TAKE 1 Memori a 40 mg oral 04-03 TABLET BY l tablet 19:07: MOUTH [place] 00 EVERY DAY Basaglar Yes INJECT 10 Lon mirza KwikPen 100 04-03 UNITS l units/mL 19:07: SUBCUTANEO Her diaz subcutaneou 00 USLY DAILY s solution AT BEDTIME hydrochloro Yes 12.5 mg = M emoria thiazide 04-03 1 cap, PO, l 12.5 mg 19:06: Daily, 0 Bob n oral 00 Refill(s) capsule aspirin 325 Yes 325 mg = 1 Memoria mg tablet 04-03 tab, PO, l 19:06: Daily, 0 [place] 00 Refill(s) allopurinol 0 Yes 300 mg = 1 [facility] 300 mg oral 04-03 tab, PO, l tablet 19:05: Daily, 0 [place] 00 Refill(s) levothyroxi Yes TAKE 1 Lon mirza ne 25 mcg 5-09 TABLET BY l (0.025 mg) 18:29: MOUTH Bob n oral tablet 00 EVERY DAY folic acid 2021-0 Yes 1mg Q.5D Take 1 mg Me thodi (FOLVITE) 1 2-[address] MG tablet 11:48: (two) Hospita 14 times a l day. metFORMIN 0 Yes 1000mg Q.5D Take 1,000 [facility] (GLUCOPHAGE 2-[address] ) 1,000 mg 11:48: mouth 2 Hosp chana tablet 14 (two) l times a day with meals. atorvastati 0 Yes 10mg QD Take 10 mg [facility] n (LIPITOR) 2-[address] 10 MG 11:48: nightly. Hospita tablet 14 l cetirizine 0 Yes 10mg QD Take 10 mg M ethodi (ZyrTEC) 10 2-[address] MG tablet 11:48: nightly. Hosp chana 14 l phenylephri 0 Yes 10mg QD Take 10 mg [facility]i ne (SUDAFED 2-[address] PE) 10 MG 11:48: every Hospita tablet 14 morning. l magnesium 2021-0 Yes 400mg QD Take 400 Met hodi oxide 2-[address] (MAG-OX) 11:48: mouth Hospita 400 mg 14 daily. l (241.3 mg magnesium) tablet glipiZIDE 0 Yes 5mg Q.5D Take 5 mg Met hodi (GLUCOTROL) 2-[address] 5 MG tablet 11:48: (two) Hospi ta 14 times a l day before meals. allopurinoL 0 Yes 300mg QD Take 300 M ethodi (ZYLOPRIM) 2-[address] 300 MG 11:48: mouth Hospita tablet 14 daily. l pot,mag 2021-0 Yes Take by Methodi citrate/sod 2-[address] ium bicarb 11:48: Hospita (LITHOLYTE 14 l ORAL) megestroL 2022-0 Yes 40mg QD Take 40 mg Me thodi (MEGACE) 40 2-[address] MG tablet 11:48: daily. Hospit a 14 l multivit-mi Yes Take by Met hodi n/FA/lycope 2-[address] n/lutein 11:48: Hospita (CENTRUM 14 l SILVER MEN ORAL) atorvastati 2020-08 Yes 10 mg = 1 M emoria n 10 mg 0-27 tab, PO, l oral tablet 16:43: Bedtime, # Jose 00 90 tab, 1 Refill(s) losartan 50 2020-08 Yes 50 mg = 1 M emoria mg oral 0-27 tab, PO, l tablet 16:43: Daily, # Jose 00 90 tab, 1 Refill(s) Folic Acid 2020-08 Yes 1 mg = 1 Mem oria 1 MG Oral 0-27 tab, PO, l Tablet 16:42: Daily, 0 Jose 00 Refill(s) Metformin 2020-08 Yes 1,000 mg = Me moria hydrochlori 0-27 1 tab, PO, l de 1000 MG 16:42: BID-Meals, H ermann Oral Tablet 00 # 60 tab, 0 Refill(s) Glipizide 5 2020-08 Yes 5 mg = 1 Me moria MG Oral 0-27 tab, PO, l Tablet 16:42: BID-Before Radha nn 00 Meals, # 180 tab, 1 Refill(s) folic acid 2020-08 Yes 1 mg = 1 Mem oria 1 mg oral 0-27 tab, PO, l tablet 16:42: Daily, 0 [place] 00 Refill(s) metFORMIN 2020-08 Yes 1,000 mg = Me moria 1000 mg 0-27 1 tab, PO, l oral tablet 16:42: BID-Meals, Jose 00 # 60 tab, 0 Refill(s) glipiZIDE 5 2020-08 Yes 5 mg = 1 Me moria mg oral 0-27 tab, PO, l tablet 16:42: BID-Before Radha nn 00 Meals, # 180 tab, 1 Refill(s) celecoxib 2020-08 Yes 200 mg = 1 Me moria 200 MG Oral 0-27 cap, PO, l Capsule 16:41: Daily, # Bob n [Celebrex] 00 30 cap, 0 Refill(s) CeleBREX 2020-08 Yes 200 mg = 1 Mem oria 200 mg oral 0-27 cap, PO, l capsule 16:41: Daily, # Bob n 00 30 cap, 0 Refill(s) magnesium 5 2020-08 No 0 Memori a mEq/L (TPN 0-27 Refill(s) l Display) 16:03: Jose Centrum 2020-08 Yes PO, Daily, Lon mirza 0-27 0 l 16:03: Refill(s) [place] allopurinol 2020-08 No 0 Memori a 300 mg oral 0-27 Refill(s) l tablet 16:01: Megestrol 2020-08 No 0 Memoria Acetate 40 0-27 Refill(s) l MG Oral 16:01: 00 Lupron Lupron No Lupron [place] 45 mg [place] 45 mg 6-10 [place] 45 [facility] (6 Month) (6 Month) 10:36: mg (6 Ur ology intramuscul intramuscul 59 Month) ar syringe ar syringe intramuscu kitInject 1 kitInject 1 lar kit by kit by syringe intramuscul intramuscul kitInject ar route. ar route. 1 kit by intramuscu lar route. losartan-hy Yes QD every Metho di drochloroth [address] iazide 00:00: Hospita (HYZAAR) 00 l 50-12.5 mg per tablet allopurinol allopurinol No allopurino [place] 300 mg 300 mg l 300 mg [facility] tablet TAKE tablet TAKE tablet Urology 1 TABLET 1 TABLET TAKE 1 DAILY DAILY TABLET DAILY aspirin 325 aspirin 325 No 1 Q1D aspirin [place] mg tablet mg tablet 325 mg Met ro Take 1 Take 1 tablet Urology tablet tablet Take 1 every day every day tablet by oral by oral every day route. route. by oral route. atorvastati atorvastati No atorvastat [place] n 10 mg n 10 mg in 10 mg [facility] tablet TAKE tablet TAKE tablet Urology 1 TABLET BY 1 TABLET BY TAKE 1 MOUTH EVERY MOUTH EVERY TABLET BY DAY DAY MOUTH EVERY DAY Basaglar Basaglar No Basaglar Denise ston KwikPen KwikPen KwikPen [place] U-100 U-100 U-100 Urology Insulin 100 Insulin 100 Insulin unit/mL (3 unit/mL (3 100 mL) mL) unit/mL (3 subcutaneou subcutaneou mL) s INJECT 10 s INJECT 10 subcutaneo UNITS UNITS us INJECT SUBCUTANEOU SUBCUTANEOU 10 UNITS SLY DAILY SLY DAILY SUBCUTANEO AT BEDTIME AT BEDTIME USLY DAILY AT BEDTIME benzonatate benzonatate No benzonatat [place] 100 mg 100 mg e 100 mg [facility] capsule capsule capsule Urolog y TAKE 1 TAKE 1 TAKE 1 CAPSULE BY CAPSULE BY CAPSULE BY MOUTH EVERY MOUTH EVERY MOUTH 8 HOURS 8 HOURS EVERY 8 NEEDED FOR NEEDED FOR HOURS COUGH/CONGE COUGH/CONGE NEEDED FOR STION STION COUGH/JOHN ESTION celecoxib celecoxib No celecoxib [place] 200 mg 200 mg 200 mg [facility] capsule capsule capsule Urolog y cephalexin cephalexin No cephalexin [place] 500 mg 500 mg 500 mg [facility] capsule capsule capsule Urolog y TAKE 1 TAKE 1 TAKE 1 CAPSULE CAPSULE CAPSULE TWICE A DAY TWICE A DAY TWICE A FOR 7 DAYS FOR 7 DAYS DAY FOR 7 DAYS fluorouraci fluorouraci No fluorourac [place] l 5 % l 5 % il 5 % [facility] topical topical topical Urolog y cream cream cream Fluzone Fluzone No Fluzone [place] High-Dose High-Dose High-Dose [facility] Quad Quad Quad Urology (PF) 240 (PF) 240 (PF) 240 mcg/0.7 mL mcg/0.7 mL mcg/0.7 mL IM syringe IM syringe IM syringe folic acid folic acid No folic acid [place] 1 mg tablet 1 mg tablet 1 mg M etro tablet Urology glipizide 5 glipizide 5 No glipizide [place] mg tablet mg tablet 5 mg [facility] TAKE 1 TAKE 1 tablet Urology TABLET BY TABLET BY TAKE 1 MOUTH EVERY MOUTH EVERY TABLET BY DAY WITH DAY WITH MOUTH BREAKFAST BREAKFAST EVERY DAY WITH BREAKFAST hydrochloro hydrochloro No hydrochlor [place] thiazide thiazide othiazide [facility] 12.5 mg 12.5 mg 12.5 mg Urolog y tablet tablet tablet ketorolac ketorolac No ketorolac [place] 10 mg 10 mg 10 mg [facility] tablet TAKE tablet TAKE tablet Urology 1 TABLET BY 1 TABLET BY TAKE 1 MOUTH EVERY MOUTH EVERY TABLET BY 6 HOURS FOR 6 HOURS FOR MOUTH 5 DAYS 5 DAYS EVERY 6 HOURS FOR 5 DAYS levothyroxi levothyroxi No levothyrox [place] ne 25 mcg ne 25 mcg ine 25 mcg [facility] tablet TAKE tablet TAKE tablet Urology 1 TABLET BY 1 TABLET BY TAKE 1 MOUTH EVERY MOUTH EVERY TABLET BY DAY DAY MOUTH EVERY DAY losartan 50 losartan 50 No losartan [place] mg tablet mg tablet 50 mg Metr o TAKE 1 TAKE 1 tablet Urology TABLET BY TABLET BY TAKE 1 MOUTH EVERY MOUTH EVERY TABLET BY DAY DAY MOUTH EVERY DAY Lupron Lupron No 1kit(s) Lupron [place] 45 mg [place] 45 mg [place] 45 [facility] (6 Month) (6 Month) mg (6 Urol ogy intramuscul intramuscul Month) ar syringe ar syringe intramuscu kit Inject kit Inject lar 1 kit by 1 kit by syringe intramuscul intramuscul kit Inject ar route. ar route. 1 kit by intramuscu lar route. Lupron Lupron No 7.5mg Lupron [place] 7.5 [place] 7.5 [place] 7.5 [facility] mg mg mg Urology intramuscul intramuscul intramuscu ar syringe ar syringe lar kit Inject kit Inject syringe 7.5 mg by 7.5 mg by kit Inject intramuscul intramuscul 7.5 mg by ar route. ar route. intramuscu lar route. megestrol megestrol No megestrol [place] 40 mg 40 mg 40 mg [facility] tablet TAKE tablet TAKE tablet Urology 1 TABLET BY 1 TABLET BY TAKE 1 MOUTH EVERY MOUTH EVERY TABLET BY DAY DAY MOUTH EVERY DAY metformin metformin No metformin [place] 1,000 mg 1,000 mg 1,000 mg Met ro tablet tablet tablet Urology mupirocin 2 mupirocin 2 No mupirocin [place] % topical % topical 2 % [facility] ointment ointment topical Urol ogy APPLY A APPLY A ointment SMALL SMALL APPLY A AMOUNT TO AMOUNT TO SMALL EACH EACH AMOUNT TO NOSTRIL NOSTRIL EACH ONCE WEEKLY ONCE WEEKLY NOSTRIL FOR ONE FOR ONE ONCE MONTH MONTH WEEKLY FOR ONE MONTH NovoFine NovoFine No NovoFine Denise ston Plus 32 Plus 32 Plus 32 [facility] gauge x gauge x gauge x Urolog y 08/31" needle 08/31" needle 08/31" USE USE needle USE DIRECTED DIRECTED ONE TIME A ONE TIME A DIRECTED DAY, DAY, ONE TIME A DIAGNOSIS DIAGNOSIS DAY, E11.65 E11.65 DIAGNOSIS E11.65 OneTouch OneTouch No OneTouch Denise ston Ultra Blue Ultra Blue Ultra Blue [facility] Test Strip Test Strip Test Strip Urology OneTouch OneTouch No OneTouch Denise ston Ultra Test Ultra Test Ultra Test [place] strips USE strips USE strips USE Urology DIRECTED DIRECTED ONE TIME A ONE TIME A DIRECTED DAY, DAY, ONE TIME A DIAGNOSIS DIAGNOSIS DAY, DIAGNOSIS Prolia 60 Prolia 60 No 1mL Prolia 60 [place] mg/mL mg/mL mg/mL [place] subcutaneou subcutaneou subcutaneo Urology s syringe s syringe us syringe Inject 1 mL Inject 1 mL Inject 1 by by mL by subcutaneou subcutaneou subcutaneo s route. s route. us route. promethazin promethazin No promethazi [place] e-DM 6.25 e-DM 6.25 ne-DM 6.25 [facility] mg-15 mg/5 mg-15 mg/5 mg-15 mg/5 Urology mL oral mL oral mL oral syrup TAKE syrup TAKE syrup TAKE 5ML BY 5ML BY 5ML BY MOUTH EVERY MOUTH EVERY MOUTH 6 HOURS 6 HOURS EVERY 6 NEEDED. DO NEEDED. DO HOURS NOT EXCEDD NOT EXCEDD NEEDED. DO 30ML IN 24 30ML IN 24 NOT EXCEDD HOURS. HOURS. 30ML IN 24 HOURS. tizanidine tizanidine No tizanidine [place] 2 mg tablet 2 mg tablet 2 mg M etro TAKE 1 TAKE 1 tablet Urology TABLET BY TABLET BY TAKE 1 MOUTH EVERY MOUTH EVERY TABLET BY 6 - 8 HOURS 6 - 8 HOURS MOUTH NEEDED NEEDED EVERY 6 - NOT TO NOT TO 8 HOURS EXCEED 3 EXCEED 3 NEEDED NOT DOSES IN 24 DOSES IN 24 TO EXCEED HOURS HOURS 3 DOSES IN 24 HOURS tizanidine tizanidine No tizanidine [place] 4 mg tablet 4 mg tablet 4 mg M etro tablet Urology Toviaz 8 mg Toviaz 8 mg No Toviaz 8 [place] tablet,exte tablet,exte mg M etro nded nded tablet,ext Urology release release ended TAKE 1 TAKE 1 release TABLET BY TABLET BY TAKE 1 MOUTH EVERY MOUTH EVERY TABLET BY DAY DAY MOUTH EVERY DAY Tradjenta 5 Tradjenta 5 No Tradjenta [place] mg tablet mg tablet 5 mg [facility] tablet Urology tramadol 50 tramadol 50 No tramadol [place] mg tablet mg tablet 50 mg Metr o TAKE 1 TAKE 1 tablet Urology TABLET BY TABLET BY TAKE 1 MOUTH EVERY MOUTH EVERY TABLET BY 6 HOURS 6 HOURS MOUTH NEEDED NEEDED EVERY 6 HOURS NEEDED allopurinol allopurinol No allopurino [place] 300 mg 300 mg l 300 mg [facility] tablet TAKE tablet TAKE tablet Urology 1 TABLET BY 1 TABLET BY TAKE 1 MOUTH EVERY MOUTH EVERY TABLET BY DAY DAY MOUTH EVERY DAY aspirin 325 aspirin 325 No 1 Q1D aspirin [place] mg tablet mg tablet 325 mg Met ro Take 1 Take 1 tablet Urology tablet tablet Take 1 every day every day tablet by oral by oral every day route. route. by oral route. atorvastati atorvastati No atorvastat [place] n 10 mg n 10 mg in 10 mg [facility] tablet TAKE tablet TAKE tablet Urology 1 TABLET BY 1 TABLET BY TAKE 1 MOUTH EVERY MOUTH EVERY TABLET BY DAY DAY MOUTH EVERY DAY Basaglar Basaglar No Basaglar Denise ston KwikPen KwikPen KwikPen [place] U-100 U-100 U-100 Urology Insulin 100 Insulin 100 Insulin unit/mL (3 unit/mL (3 100 mL) mL) unit/mL (3 subcutaneou subcutaneou mL) s INJECT 10 s INJECT 10 subcutaneo UNITS UNITS us INJECT SUBCUTANEOU SUBCUTANEOU 10 UNITS SLY DAILY SLY DAILY SUBCUTANEO AT BEDTIME AT BEDTIME USLY DAILY AT BEDTIME celecoxib celecoxib No celecoxib [place] 200 mg 200 mg 200 mg [facility] capsule capsule capsule Urolog y fluorouraci fluorouraci No fluorourac [place] l 5 % l 5 % il 5 % [facility] topical topical topical Urolog y cream cream cream Fluzone Fluzone No Fluzone [place] High-Dose High-Dose High-Dose [place] Quad Quad Quad Urology (PF) 240 (PF) 240 (PF) 240 mcg/0.7 mL mcg/0.7 mL mcg/0.7 mL IM syringe IM syringe IM syringe folic acid folic acid No folic acid [place] 1 mg tablet 1 mg tablet 1 mg M etro tablet Urology glipizide 5 glipizide 5 No glipizide [place] mg tablet mg tablet 5 mg [facility] TAKE 1 TAKE 1 tablet Urology TABLET BY TABLET BY TAKE 1 MOUTH TWO MOUTH TWO TABLET BY TIMES A DAY TIMES A DAY MOUTH TWO WITH MEAL WITH MEAL TIMES A (BREAKFAST (BREAKFAST DAY WITH AND SUPPER) AND SUPPER) MEAL (BREAKFAST AND SUPPER) ketorolac ketorolac No ketorolac [place] 10 mg 10 mg 10 mg [facility] tablet TAKE tablet TAKE tablet Urology 1 TABLET BY 1 TABLET BY TAKE 1 MOUTH EVERY MOUTH EVERY TABLET BY 6 HOURS FOR 6 HOURS FOR MOUTH 5 DAYS 5 DAYS EVERY 6 HOURS FOR 5 DAYS levothyroxi levothyroxi No levothyrox [place] ne 25 mcg ne 25 mcg ine 25 mcg [facility] tablet TAKE tablet TAKE tablet Urology 1 TABLET BY 1 TABLET BY TAKE 1 MOUTH EVERY MOUTH EVERY TABLET BY DAY DAY MOUTH EVERY DAY levothyroxi levothyroxi No levothyrox [place] ne 50 mcg ne 50 mcg ine 50 mcg [facility] tablet TAKE tablet TAKE tablet Urology 1 TABLET BY 1 TABLET BY TAKE 1 MOUTH EVERY MOUTH EVERY TABLET BY DAY DAY MOUTH EVERY DAY losartan 50 losartan 50 No losartan [place] mg tablet mg tablet 50 mg Metr o TAKE 1 TAKE 1 tablet Urology TABLET BY TABLET BY TAKE 1 MOUTH EVERY MOUTH EVERY TABLET BY DAY DAY MOUTH EVERY DAY megestrol megestrol No megestrol [place] 40 mg 40 mg 40 mg [facility] tablet TAKE tablet TAKE tablet Urology 1 TABLET BY 1 TABLET BY TAKE 1 MOUTH EVERY MOUTH EVERY TABLET BY DAY DAY MOUTH EVERY DAY metformin metformin No metformin [place] 1,000 mg 1,000 mg 1,000 mg Met ro tablet tablet tablet Urology NovoFine NovoFine No NovoFine Denise ston Plus 32 Plus 32 Plus 32 [facility] gauge x gauge x gauge x Urolog y 1/6" needle 1/6" needle 1/6" USE USE needle USE DIRECTED DIRECTED ONE TIME A ONE TIME A DIRECTED DAY, DAY, ONE TIME A DIAGNOSIS DIAGNOSIS DAY, DIAGNOSIS E11 NovoTwist NovoTwist No NovoTwist [place] 32 gauge x 32 gauge x 32 gauge x [place] 1/5" needle 1/5" needle 1/5" U rology USE USE needle USE DIRECTED DIRECTED ONE TIME A ONE TIME A DIRECTED DAY, DAY, ONE TIME A DIAGNOSIS DIAGNOSIS DAY, DIAGNOSIS OneTouch OneTouch No OneTouch Denise ston Ultra Blue Ultra Blue Ultra Blue [facility] Test Strip Test Strip Test Strip Urology OneTouch OneTouch No OneTouch Denise ston Ultra Test Ultra Test Ultra Test [place] strips USE strips USE strips USE Urology DIRECTED DIRECTED ONE TIME A ONE TIME A DIRECTED DAY, DAY, ONE TIME A DIAGNOSIS DIAGNOSIS DAY, E11.65 E11.65 DIAGNOSIS E11.65 Prolia 60 Prolia 60 No 1mL Prolia 60 [place] mg/mL mg/mL mg/mL [facility] subcutaneou subcutaneou subcutaneo Urology s syringe s syringe us syringe Inject 1 mL Inject 1 mL Inject 1 by by mL by subcutaneou subcutaneou subcutaneo s route. s route. us route. promethazin promethazin No promethazi [place] e-DM 6.25 e-DM 6.25 ne-DM 6.25 [facility] mg-15 mg/5 mg-15 mg/5 mg-15 mg/5 Urology mL oral mL oral mL oral syrup TAKE syrup TAKE syrup TAKE 5ML BY 5ML BY 5ML BY MOUTH EVERY MOUTH EVERY MOUTH 6 HOURS 6 HOURS EVERY 6 NEEDED. DO NEEDED. DO HOURS NOT EXCEDD NOT EXCEDD NEEDED. DO 30ML IN 24 30ML IN 24 NOT EXCEDD HOURS. HOURS. 30ML IN 24 HOURS. Tradjenta 5 Tradjenta 5 No Tradjenta [place] mg tablet mg tablet 5 mg [facility] TAKE 1 TAKE 1 tablet Urology TABLET BY TABLET BY TAKE 1 MOUTH DAILY MOUTH DAILY TABLET BY IN MORNING IN MORNING MOUTH WITH WITH DAILY IN BREAKFAST BREAKFAST MORNING WITH BREAKFAST allopurinol allopurinol No allopurino [place] 300 mg 300 mg l 300 mg [facility] tablet TAKE tablet TAKE tablet Urology 1 TABLET 1 TABLET TAKE 1 DAILY DAILY TABLET DAILY aspirin 325 aspirin 325 No 1 Q1D aspirin [place] mg tablet mg tablet 325 mg Met ro Take 1 Take 1 tablet Urology tablet tablet Take 1 every day every day tablet by oral by oral every day route. route. by oral route. atorvastati atorvastati No atorvastat [place] n 10 mg n 10 mg in 10 mg [facility] tablet TAKE tablet TAKE tablet Urology 1 TABLET BY 1 TABLET BY TAKE 1 MOUTH EVERY MOUTH EVERY TABLET BY DAY DAY MOUTH EVERY DAY benzonatate benzonatate No benzonatat [place] 100 mg 100 mg e 100 mg [facility] capsule capsule capsule Urolog y celecoxib celecoxib No celecoxib [place] 200 mg 200 mg 200 mg [facility] capsule capsule capsule Urolog y fluorouraci fluorouraci No fluorourac [place] l 5 % l 5 % il 5 % [facility] topical topical topical Urolog y cream cream cream Fluzone Fluzone No Fluzone [place] High-Dose High-Dose High-Dose [facility] Quad Quad Quad Urology (PF) 240 (PF) 240 (PF) 240 mcg/0.7 mL mcg/0.7 mL mcg/0.7 mL IM syringe IM syringe IM syringe folic acid folic acid No folic acid [place] 1 mg tablet 1 mg tablet 1 mg M etro tablet Urology glipizide 5 glipizide 5 No glipizide [place] mg tablet mg tablet 5 mg [facility] TAKE 1 TAKE 1 tablet Urology TABLET BY TABLET BY TAKE 1 MOUTH EVERY MOUTH EVERY TABLET BY DAY WITH DAY WITH MOUTH BREAKFAST BREAKFAST EVERY DAY WITH BREAKFAST hydrochloro hydrochloro No hydrochlor [place] thiazide thiazide othiazide Me tro 12.5 mg 12.5 mg 12.5 mg Urolog y tablet tablet tablet ketorolac ketorolac No ketorolac [place] 10 mg 10 mg 10 mg [facility] tablet TAKE tablet TAKE tablet Urology 1 TABLET BY 1 TABLET BY TAKE 1 MOUTH EVERY MOUTH EVERY TABLET BY 6 HOURS FOR 6 HOURS FOR MOUTH 5 DAYS 5 DAYS EVERY 6 HOURS FOR 5 DAYS losartan 50 losartan 50 No losartan [place] mg tablet mg tablet 50 mg Metr o TAKE 1 TAKE 1 tablet Urology TABLET BY TABLET BY TAKE 1 MOUTH EVERY MOUTH EVERY TABLET BY DAY DAY MOUTH EVERY DAY Lupron Lupron No 1kit(s) Lupron [place] 45 mg [place] 45 mg [place] 45 [place] (6 Month) (6 Month) mg (6 Urol ogy intramuscul intramuscul Month) ar syringe ar syringe intramuscu kit Inject kit Inject lar 1 kit by 1 kit by syringe intramuscul intramuscul kit Inject ar route. ar route. 1 kit by intramuscu lar route. Lupron Lupron No 7.5mg Lupron [place] Dep[place] 7.5 Depot 7.5 Dep[place] 7.5 [facility] mg mg mg Urology intramuscul intramuscul intramuscu ar syringe ar syringe lar kit Inject kit Inject syringe 7.5 mg by 7.5 mg by kit Inject intramuscul intramuscul 7.5 mg by ar route. ar route. intramuscu lar route. megestrol megestrol No megestrol [place] 40 mg 40 mg 40 mg [facility] tablet TAKE tablet TAKE tablet Urology 1 TABLET BY 1 TABLET BY TAKE 1 MOUTH EVERY MOUTH EVERY TABLET BY DAY DAY MOUTH EVERY DAY metformin metformin No metformin [place] 1,000 mg 1,000 mg 1,000 mg Met ro tablet tablet tablet Urology mupirocin 2 mupirocin 2 No mupirocin [place] % topical % topical 2 % [place] ointment ointment topical Urol ogy APPLY A APPLY A ointment SMALL SMALL APPLY A AMOUNT TO AMOUNT TO SMALL EACH EACH AMOUNT TO NOSTRIL NOSTRIL EACH ONCE WEEKLY ONCE WEEKLY NOSTRIL FOR ONE FOR ONE ONCE MONTH MONTH WEEKLY FOR ONE MONTH OneTouch OneTouch No OneTouch Denise ston Ultra Blue Ultra Blue Ultra Blue [facility] Test Strip Test Strip Test Strip Urology Prolia 60 Prolia 60 No 1mL Prolia 60 [place] mg/mL mg/mL mg/mL [place] subcutaneou subcutaneou subcutaneo Urology s syringe s syringe us syringe Inject 1 mL Inject 1 mL Inject 1 by by mL by subcutaneou subcutaneou subcutaneo s route. s route. us route. tizanidine tizanidine No tizanidine [place] 4 mg tablet 4 mg tablet 4 mg M etro tablet Urology Toviaz 8 mg Toviaz 8 mg No Toviaz 8 [place] tablet,exte tablet,exte mg M etro nded nded tablet,ext Urology release release ended TAKE 1 TAKE 1 release TABLET BY TABLET BY TAKE 1 MOUTH EVERY MOUTH EVERY TABLET BY DAY DAY MOUTH EVERY DAY Immunizations Ordered Immunization Filled Immunization Date Status Commen Source Name Name Covid-19 Vaccine MRNA 2020-10-[address] [facility] (PF) 12yr+ 00:00:00 Medical (Pfizer/BioNTech)([facility] [address]) Covid-19 Vaccine MRNA 2020-09-[address] [facility] (PF) 12yr+ 00:00:00 Medical (Pfizer/BioNTech)([facility] [address]) influenza, influenza, 2020-05-26 [facility] Urology quadrivalent quadrivalent influenza, influenza, 2020-05-26 [facility], injectable, 00:00:00 Urology quadrivalent quadrivalent influenza, influenza, 2020-05-26 [facility], injectable, 00:00:00 Urology quadrivalent quadrivalent influenza, influenza, 2019-05-28 Completed [facility] injectable, injectable, 00:00:00 Urology quadrivalent quadrivalent influenza, influenza, 2019-05-28 [facility], injectable, 00:00:00 Urology quadrivalent quadrivalent influenza, influenza, 2019-05-28 [facility] inject[facility], injectable, 00:00:00 Urology quadrivalent quadrivalent influenza, influenza, 2018-06-10 [facility]pleted [facility], injectable, 00:00:00 Urology quadrivalent quadrivalent influenza, influenza, 2018-06-10 Completed [facility] inject[facility], injectable, 00:00:00 Urology quadrivalent quadrivalent influenza, influenza, 2018-06-10 [facility]pleted [facility] inject[facility], injectable, 00:00:00 Urology quadrivalent quadrivalent pneumococcal pneumococcal 2016-04-30 Completed [facility] tro polysaccharide PPV23 polysaccharide PPV23 00:00:00 Urology pneumococcal pneumococcal 2016-04-30 Completed [facility] tro polysaccharide PPV23 polysaccharide PPV23 00:00:00 Urology pneumococcal pneumococcal 2016-04-30 Completed [facility] tro polysaccharide PPV23 polysaccharide PPV23 00:00:00 Urology Vital Signs Vital Name Observation Time Observation Value Comments Source Height 2022-10-18 00:00:00 70 [in_i] [facility] Urology Height 2022-04-23 00:00:00 70 [in_i] [facility] Urology BMI (Body Mass 2022-04-23 00:00:00 26.8 kg/m2 [place] Index) Urology Body Weight 2022-04-23 00:00:00 187 [lb_av] [facility] Urology Height 2021-02-02 00:00:00 70 [in_i] [facility] Urology BMI (Body Mass 2021-02-02 00:00:00 26.8 kg/m2 [place] Index) Urology Body Weight 2021-02-02 00:00:00 187 [lb_av] [facility] Urology Height 2023-01-01 20:48:00 5 [ft_i] [facility] Weight 2023-01-01 20:48:00 [facility] BMI Calculated 2023-01-01 20:48:00 Samantha Xie Systolic (mm Hg) 2023-01-01 20:48:00 Lon rial Jose Diastolic (mm Hg) 2023-01-01 20:48:00 Mem orial Jose Heart Rate 2023-01-01 20:48:00 [facility] Systolic (mm Hg) 2022-11-23 16:40:00 Lon rial Jose Diastolic (mm Hg) 2022-11-23 16:40:00 Mem orial Jose Heart Rate 2022-11-23 16:40:00 [facility] Height 2022-11-23 16:40:00 5 [ft_i] [facility] Weight 2022-11-23 16:40:00 [facility] BMI Calculated 2022-11-23 16:40:00 Memori al [facility] Systolic (mm Hg) 2022-10-12 20:32:00 Lon [facility] [place] Diastolic (mm Hg) 2022-10-12 20:32:00 Mem orial Jose Heart Rate 2022-10-12 20:32:00 [facility] Height 2022-10-12 20:32:00 5 [ft_i] [facility] Weight 2022-10-12 20:32:00 [facility] BMI Calculated 2022-10-12 20:32:00 [facility] [place] Systolic (mm Hg) 2022-08-31 20:23:00 Lon rial Jose Diastolic (mm Hg) 2022-08-31 20:23:00 Mem orial Jose Heart Rate 2022-08-31 20:23:00 [facility] Height 2022-08-31 20:23:00 5 [ft_i] [facility] Weight 2022-08-31 20:23:00 [facility] BMI Calculated 2022-08-31 20:23:00 [facility] [place] Systolic (mm Hg) 2022-07-31 19:32:00 Lon rial Jose Diastolic (mm Hg) 2022-07-31 19:32:00 [facility] [place] Heart Rate 2022-07-31 19:32:00 [facility] Height 2022-07-31 19:32:00 5 [ft_i] [facility] Weight 2022-07-31 19:32:00 [facility] BMI Calculated 2022-07-31 19:32:00 [facility] [place] Systolic (mm Hg) 2022-05-29 19:37:00 Lon [facility] [place] Diastolic (mm Hg) 2022-05-29 19:37:00 [facility] [place] Heart Rate 2022-05-29 19:37:00 [facility] Respitory Rate 2022-05-29 19:37:00 [facility] [place] Height 2022-05-29 19:37:00 175.26 cm [facility] Weight 2022-05-29 19:37:00 [facility] BMI Calculated 2022-05-29 19:37:00 Memori al Jose Systolic (mm Hg) 2022-04-03 18:55:00 Lon rial [place] Diastolic (mm Hg) 2022-04-03 18:55:00 Mem orial Jose Heart Rate 2022-04-03 18:55:00 [facility] Respitory Rate 2022-04-03 18:55:00 Memori al [facility] Height 2022-04-03 18:55:00 175.26 cm [facility] Weight 2022-04-03 18:55:00 [facility] BMI Calculated 2022-04-03 18:55:00 Memori al [facility] Systolic (mm Hg) 2022-01-01 18:15:00 Lon rial [place] Diastolic (mm Hg) 2022-01-01 18:15:00 Mem orial Jose Heart Rate 2022-01-01 18:15:00 [facility] Respitory Rate 2022-01-01 18:15:00 Memori al Jose Height 2022-01-01 18:15:00 175.26 cm [facility] Weight 2022-01-01 18:15:00 [facility] BMI Calculated 2022-01-01 18:15:00 [facility] [place] Systolic (mm Hg) 2021-10-05 17:22:00 Lon rial Jose Diastolic (mm Hg) 2021-10-05 17:22:00 Mem [facility] [place] Heart Rate 2021-10-05 17:22:00 [facility] Respitory Rate 2021-10-05 17:22:00 [facility] [place] Height 2021-10-05 17:22:00 175.26 cm [facility] Weight 2021-10-05 17:22:00 [facility] BMI Calculated 2021-10-05 17:22:00 Memori al [facility] Systolic (mm Hg) 2021-08-03 15:38:00 Lon rial [place] Diastolic (mm Hg) 2021-08-03 15:38:00 Mem orial Jose Heart Rate 2021-08-03 15:38:00 [facility] Respitory Rate 2021-08-03 15:38:00 Memori al Jose Height 2021-08-03 15:38:00 172.72 cm [facility] Weight 2021-08-03 15:38:00 [facility] BMI Calculated 2021-08-03 15:38:00 [facility] [place] Systolic (mm Hg) 2021-07-12 16:22:00 Lon rial [place] Diastolic (mm Hg) 2021-07-12 16:22:00 Mem orial Jose Heart Rate 2021-07-12 16:22:00 [facility] Respitory Rate 2021-07-12 16:22:00 Memori al Jose Height 2021-07-12 16:22:00 175.26 cm [facility] Weight 2021-07-12 16:22:00 [facility] BMI Calculated 2021-07-12 16:22:00 Memori al Jose Systolic (mm Hg) 2021-06-21 15:45:00 Lon rial [place] Diastolic (mm Hg) 2021-06-21 15:45:00 Mem orial Jose Heart Rate 2021-06-21 15:45:00 [facility] Respitory Rate 2021-06-21 15:45:00 Memori al Jose Procedures Procedure Date / Time Performing Clinician Source Performed DEXA, axial skeleton 2022-04-23 00:00:00 [facility] Urology GI- Ventral Hernia Repair 2020-08-26 00:00:[address] [facility] Urology Remove Bladder Stone 2019-06-16 00:00:00 [facility] Urology Prostatectomy (Turp) 2019-06-16 00:00:00 [facility] Urology -TURP Prostate 2018-08-26 00:00:00 [facility] Resection Urology HEENT- Cataract Surgery 2013-08-26 00:00:00 José Miguel [facility] Urology GI- Colon Resection 2007-08-26 00:00:00 [place] [facility] - Hernia Repair 2005-08-26 00:00:00 [facility] tro Urology SKIN- Squamous Cell 2004-08-26 00:00:00 [place] [facility] GI- Inguinal Hernia 2004-08-26 00:00:00 [place] [facility] GI- Inguinal Hernia 2003-08-26 00:00:00 [place] [facility] SKIN- Basel Cell 1999-08-26 00:00:00 [place] [facility] MUSCU- Foot Surgery 1991-08-26 00:00:00 [place] [facility] - Cystoscopy- Dilation 1987-08-26 00:00:00 Denise ston [facility] HEENT- Tonsil Surgery 1949-08-26 00:00:00 Wesly sheets [facility] HEENT- Facial Surgery [facility] tro Urology Cervical discectomy [facility] Prostate cancer care [facility] review Colon operation [facility] Hernia repair [facility] Hip replacement [facility] Plan of Care Planned Activity Planned Date Details Comments Source Future Scheduled Test 2023-04-26 Influenza Vaccine [facility] 00:00:00 (#1) [code = [facility] Influenza Vaccine (#1)] Future Scheduled Test 2023-02-07 SHINGLES VACCINES (1 [facility] 15:08:30 of 2) [code = SHINGLES VACCINES (1 of 2)] Future Scheduled Test 2023-02-07 65+ PNEUMOCOCCAL [facility] 15:08:30 VACCINE (2 - PCV) [code = 65+ PNEUMOCOCCAL VACCINE (2 - PCV)] Future Scheduled Test 2023-02-07 COVID-19 VACCINE (4 - [facility] 15:08:30 Pfizer series) [code = COVID-19 VACCINE (4 - Pfizer series)] Future Scheduled Test 2023-02-07 INFLUENZA VACCINE [facility] 15:08:30 [code = INFLUENZA VACCINE] Diagnostic Test 2022-10-18 PSA, serum or plasma [place] Pending 00:00:00 [code = PSA, serum or Urolog y plasma] Diagnostic Test 2022-10-18 testosterone, total, [place] Pending 00:00:00 serum [code = Urology testosterone, total, serum] Diagnostic Test 2022-10-18 urinalysis, dipstick [place] Pending 00:00:00 [code = urinalysis, Urology dipstick] Future Scheduled Test 2022-08-[address] [facility] 00:00:00 (12+) [code = Medical Center DEPRESSION SCREENING (12+)] Future Scheduled Test 2022-08-26 F[address]S [address]ISK SCREENING [facility] 00:00:00 [code = FALLS RISK Medical C enter SCREENING] Future Scheduled Test 2020-12-15 COVID-19 VACCINE (3 - [facility] 00:00:00 Booster for Pfizer Medical C enter series) [code = COVID-19 VACCINE (3 - Booster for Pfizer series)] Future Scheduled Test 1990 SHINGLES VACCINES ([address] [facility] 00:00:00 of 2) [code = Medical Center SHINGLES VACCINES (1 of 2)] Future Scheduled Test 1959 DTAP/TDAP/TD VACCINES [facility] 00:00:00 (1 - Tdap) [code = Medical C enter DTAP/TDAP/TD VACCINES (1 - Tdap)] Future Scheduled Test [address] [facility] 00:00:00 [facility] Scre[facility] (12+) [code = Tobacco Cessation Counseling and Screening (12+)] Future Appointment 2023-04-16 José Miguel Adame 00:00:00 [address] [facility] [address] , [place] [address] Encounters Start End Encounter Admission Attending Care Care Encounter Source Date/Time Date/Time Type Type Clinicians Facility Department ID 2023-04-04 2023-04-04 Outpatient FRANKI DOAN [id number] [facility] 09:15:00 09:15:00 12 marianne Garcia 2023-01-01 2023-01-02 Outpatient FRANKI TIPTON [id number] [facility] 20:45:00 04:59:59 Neurology 11 marianne Garcia 2023-01-01 2023-01-01 Outpatient SABA Osuna [id number] 15:45:00 23:59:59 Ryan Yanez 2023-01-01 2023-01-01 Outpatient FRANKI DOAN [id number] [facility] 15:45:00 15:45:00 11 marianne Garcia 2022-11-23 2022-11-24 Outpatient MHIE MNA [id number] [facility] 16:30:00 04:59:59 Neurology 10 marianne Garcia 2022-11-23 2022-11-23 Outpatient MAHESH OsunaMISCHER MHMISCHER [id number] 11:30:00 23:59:59 Ryan 10 Beau 2022-11-23 2022-11-23 Outpatient MHIE MHIE [id number] [facility] 11:30:00 11:30:00 10 marianne Garcia 2022-10-18 2022-10-18 Outpatient Goldfarb_R [facility] [id number] [place] 00:00:00 00:00:00 [id number] [facility] 2022-10-18 2022-10-18 Outpatient Goldfarb_R [facility] [id number] [place] 00:00:00 00:00:00 [id number] [facility] 2022-10-18 2022-10-18 Elia [facility] [place] - [id number] [facility] 00:00:00 00:00:00 Dave Clemens MD: [id number] [facility] [address], [place] [address] , Ph. 2022-10-14 2022-10-14 Outpatient Goldfarb_R [facility] [id number] [place] 00:00:00 00:00:00 [id number] [facility] 2022-10-12 2022-10-13 Outpatient MHIE MNA [id number] [facility] 20:15:00 05:59:59 Neurology 09 marianne Felixann 2022-10-12 2022-10-12 Outpatient JAGUAR OsunaSCHER MHMISCHER [id number] 14:15:00 23:59:59 Ryan 09 Beau 2022-10-12 2022-10-12 Outpatient MHIE MHIE [id number] [facility] 14:15:00 14:15:00 09 marianne Garcia 2022-08-31 2022-09-01 Outpatient MHIE MNA [id number] [facility] 20:15:00 05:59:59 Neurology 08 marianne Felixann 2022-08-31 2022-08-31 Outpatient MAHESH OsunaMISCHER MHMISCHER [id number] 14:15:00 23:59:59 Ryan 08 Beau 2022-08-31 2022-08-31 Outpatient MHIE MHIE [id number] [facility] 14:15:00 14:15:00 08 marianne Garcia 2022-07-31 2022-08-01 Outpatient MHIE MNA [id number] [facility] 19:15:00 05:59:59 Neurology 07 l Marci Garcia 2022-07-31 2022-07-31 Outpatient MAHESH OsunaMISCHER MHMISCHER [id number] 13:15:00 23:59:59 Ryan 07 Beau 2022-07-31 2022-07-31 Outpatient MHIE MHIE [id number] [facility] 13:15:00 13:15:00 07 marianne Garcia 2022-05-31 2022-05-31 Outpatient Goldfarb_R [facility] [id number] [place] 00:00:00 00:00:00 [id number] [facility] 2022-05-29 2022-05-30 Outpatient nullFlavo MNA [id number] [facility] 19:15:00 04:59:59 r Neurology 06 marianne Garcia 2022-05-29 2022-05-29 Outpatient JAGUAR OsunaSCHER MHMISCHER [id number] 14:15:00 23:59:59 Ryan 06 Beau 2022-05-29 2022-05-29 Outpatient MHIE MHIE [id number] [facility] 14:15:00 14:15:00 06 marianne Garcia 2022-05-10 2022-05-10 Outpatient Goldfarb_R [facility] [id number] [place] 00:00:00 00:00:00 [id number] [facility] 2022-04-24 2022-04-24 Outpatient Goldfarb_R [facility] [id number] [place] 00:00:00 00:00:00 [id number] [facility] 2022-04-23 2022-04-23 Outpatient Goldfarb_R [facility] [id number] [place] 00:00:00 00:00:00 [facility] 2022-04-23 2022-04-23 Outpatient Jayleen, Kenisha U [id number] 00:00:00 00:00:00 Elia [id number] 2022-04-23 2022-04-23 Elia U [place] - [id number] H raymond 00:00:00 00:00:00 Jayleen, Dave camarena MD: [id number] [facility] [address], [place] [address] , Ph. 2022-04-21 2022-04-21 Outpatient Goldfarb_R [facility] [id number] [place] 00:00:00 00:00:00 [facility] 2022-04-19 2022-04-19 Outpatient Goldfarb_R [facility] [id number] [place] 00:00:00 00:00:00 [facility] 2022-04-03 2022-04-04 Outpatient nullFlavo MNA [id number] [facility] 18:45:00 04:59:59 r Neurology 05 l Marci Jose 2022-04-03 2022-04-03 Outpatient JAGUAR OsunaSCHER MHMISCHER [id number] 13:45:00 23:59:59 Ryan 05 Beau 2022-04-03 2022-04-03 Outpatient MHIE MHIE [id number] [facility] 13:45:00 13:45:00 05 marianne Garcia 2022-01-01 2022-01-02 Outpatient nullFlavo MNA [id number] [facility] 18:00:00 04:59:59 r Neurology 04 l Marci Jose 2022-01-01 2022-01-01 Outpatient JAGUAR OsunaSCHER MHMISCHER [id number] 13:00:00 23:59:59 Ryan 04 Beau 2022-01-01 2022-01-01 Outpatient MHIE MHIE [id number] [facility] 13:00:00 13:00:00 04 l Jose 2021-11-29 2021-11-29 Outpatient GIST, [facility] [id number] [place] 00:00:00 00:00:[address] 2021-10-18 2021-10-19 Inpatient GIST, [facility] [id number] [place] 00:00:00 00:00:00 TIMBO 306 Method i 2021-10-16 2021-10-16 Outpatient GIST, [facility] [id number] [place] 00:00:00 00:00:00 TIMBO 579 Method i 2021-10-16 2021-10-16 Outpatient GIST, [facility] [id number] [place] 00:00:00 00:00:00 TIMBO 395 Method i 2021-10-12 2021-10-12 Outpatient GIST, [facility] [id number] [place] 00:00:00 00:00:00 TIMBO 457 Method i 2021-10-05 2021-10-06 Outpatient nullFlavo MNA [id number] [facility] 17:15:00 05:59:59 r Neurology 03 l [place] 2021-10-05 2021-10-05 Outpatient JAGUAR OsunaSCHER MHMISCHER [id number] 11:15:00 23:59:59 Ryan 03 Beau 2021-10-05 2021-10-05 Outpatient MHIE MHIE [id number] [facility] 11:15:00 11:15:00 03 marianne Jose 2021-08-17 2021-08-[address] [facility] [id number] Univers 19:20:00 19:20:00 [facility] 2021-08-17 2021-08-[address] [facility] [id number] Univers 19:20:00 19:20:00 [id number] [facility] 2021-08-03 2021-08-04 Outpatient nullFlavo MNA [id number] [facility] 15:30:00 05:59:59 r Neurology 01 l [place] 2021-08-03 2021-08-03 Outpatient JAGUAR OsunaSCHER MHMISCHER [id number] 09:30:00 23:59:59 Ryan 01 Beau 2021-08-03 2021-08-03 Outpatient MHIE MHIE [id number] [facility] 09:30:00 09:30:00 01 marianne Jose 2021-07-12 2021-07-13 Outpatient nullFlavo MNA [id number] [facility] 16:15:00 05:59:59 r Neurology 02 l Marci Garcia 2021-07-12 2021-07-[address] [facility] [id number] 10:15:00 23:59:59 Ryan 02 Beau 2021-07-12 2021-07-12 Outpatient MHIE REMY [id number] [facility] 10:15:00 10:15:00 02 marianne Garcia 2021-06-21 2021-06-22 Outpatient nullFlavo MNA [id number] [facility] 16:00:00 04:59:59 r Neurology 00 marianne Garcia 2021-06-21 2021-06-[address] [facility] [id number] 11:00:00 23:59:59 Ryan 00 Beau 2021-06-21 2021-06-21 Outpatient MHIE FRANKI [id number] [facility] 11:00:00 11:00:00 00 marianne Jose 2021-06-15 2021-06-15 Outpatient Goldfarb_R [facility] U [id number] [place] 02:11:00 02:11:00 [id number] [facility] 2021-02-18 2021-02-18 Outpatient Goldfarb_R [facility] U [id number] [place] 01:04:00 01:04:00 [id number] [facility] 2021-02-15 2021-02-15 Outpatient Goldfarb_R [facility] [id number] [place] 04:51:00 04:51:00 [id number] [facility] 2021-02-02 2021-02-02 Outpatient Goldfarb_R [facility] [id number] [place] 12:05:00 12:05:00 [id number] [facility] 2021-02-02 2021-02-02 Outpatient MAKEDA Clemens U [id number] 00:00:00 00:00:00 Elia [id number] 2021-02-02 2021-02-02 Elia Kenisha [place] - [id number] Anne-Marie andrade 00:00:00 00:00:00 Dave Clemens MD: 6560 [facility] [place] [id number] [facility], [place] [address] , Ph. 2021-01-03 2021-01-03 Outpatient Goldfarb_R [facility] U [id number] [place] 11:10:00 11:10:00 [id number] [facility] 2021-01-03 2021-01-03 Outpatient Goldfarb_R [facility] U [id number] [place] 11:10:00 11:10:00 [id number] [facility] 2020-12-21 2020-12-21 Outpatient Goldfarb_R [facility] U [id number] [place] 05:36:00 05:36:00 [id number] [facility] 2020-12-21 2020-12-21 Outpatient Goldfarb_R [facility] [id number] [place] 05:36:00 05:36:00 [id number] [facility] 2020-12-21 2020-12-21 Outpatient Goldfarb_R [facility] U [id number] [place] 05:36:00 05:36:00 [id number] [facility] 2020-12-02 2020-12-02 Outpatient Goldfarb_R [facility] [id number] [place] 01:04:00 01:04:00 [id number] [facility] 2020-10-20 2020-10-20 Outpatient EL [facility] [id number] [facility] 00:00:00 00:00:00 2020-09-22 2020-09-22 Outpatient [facility] [id number] [facility] 00:00:00 00:00:00 2020-08-22 2020-08-22 Laboratory Lab, Adc Fam Pob I [facility] 1.2. [id number] Univers 18:22:28 18:42:28 Only Raghavendra [facility] [id number] [facility] [id number] Sid as Professio [id number] [address] 2020-08-22 2020-08-[address] [facility] [id number] [facility] 18:40:00 18:40:00 [facility] Test Description Test Time Test Comments Results Result Comments Source SARS-CoV-2 (COVID-19) RNA [Presence] in Respiratory sp ecimen by 2021-10-16 16:53:05 RYLIE with probe detection Test Item Value Reference Range Interpretation Comme nts SARS-CoV-2 (COVID-19) RNA [Presence] in Respiratory specimen by Not detected RYLIE with probe detection (test code = 29616-8) Whether patient is employed in a healthcare setting (test code = Un known 36989-3) Whether the patient has symptoms related to condition of interest U nknown (test code = 80638-5) Whether the patient was hospitalized for condition of interest Yes (test code = 09333-5) Whether the patient was admitted to intensive care unit (ICU) for N o condition of interest (test code = 23049-1) Whether patient resides in a congregate care setting (test code = Y es 49400-0) status (test code = 28197-8) No Date and time of symptom onset (test code = 24889-0) Unknown DAVE SELLERSRS-CoV-2 (COVID-19) RNA [Presence] in Respiratory specimen by RYLIE with probe [id number] 16:53:05 Test Item Value Reference Range Interpretation Comments SARS coronavirus RNA [Presence] Not detected in Isolate by RYLIE with probe detection (test code = 18835-9) Whether patient is employed in a Unknown healthcare setting (test code = 18297-1) Whether the patient has symptoms Unknown related to condition of interest (test code = 44496-6) Whether the patient was Yes hospitalized for condition of interest (test code = 40265-9) Whether the patient was admitted No to intensive care unit (ICU) for condition of interest (test code = 45501-9) Whether patient resides in a Yes congregate care setting (test code = 23063-7) status (test code = No 97667-4) Date and time of symptom onset Unknown (test code = 94761-1) DAVE LEOSGLUBED2019-12-11 12:08:00 Test Item Value Reference Range Interpretation Comments GLUBED (test code = GLUBED) 147 mg/dL 60-125 H BASIC METABOLIC [id number] 07:15:00 Test Item Value Reference Range Interpretation [...] RATE (test code = GFR) mL/mi n/1.73 [id number] Range:Healthy Adults >90 mL/min/1.73 m2 For Chronic Kidney Disease: Stage II Mild Decrease i n GFR 60-90 Stage III Moderate Decrea se in GFR 30-59 St age IV Severe Decre ase in GFR 15-29 St age V Kidney Failur e <15 CREATININE (test code 1.15 mg/dL 0.55-1.30 N = CREAT) CALCIUM (test code = 7.7 mg/dL 8.2-10.1 L CA) HGB [id number] 06:01:00 Test Item Value Reference Range Interpretation Comments HEMOGLOBIN (test code = HGB) 9.4 g/dL 12-16 L HEMATOCRIT (test code = HCT) 28.4 % 37-47 L [id number] 05:24:00 Test Item Value Reference Range Interpretation Comments GLUBED (test code = GLUBED) 258 mg/dL 60-125 H - XR PELVIS 1/2 [id number] 17:30:00 Patient Name: ANNALISE GODFREY Unit No: [id number] EXAMS: CPT CODE: [id number] XR PELVIS 1/2 VIEWS 08718 INTRAOPERATIVE LEG LENGTH FILM COMMENT: COMPARISON: No prior exams available. In progress right hip replacement is noted. AP PORTABLE RIGHT HIP COMMENT: The patient is status post joint replacement which is articulating normally. at 1730 Reported and signed by: Christopher Cornejo MD CC: Sebastian Chatman MD Technologist: REGINA RICH (RT.R) Transcribed D/ (1730) t.ELINOR.[facility] NAME: ANNALISE GODFREY [address] [facility] [address] PHYS: Sebastian Erazo MD : 1940 AGE: 78 SEX: M [place] [address] LOC: Y.305 A PHONE #: [phone] EXAM DATE: 08/04/2019 STATUS: DIS INFAX #: [phone] RAD #: D/C DT 08/05/2019 PAGE 1 Signed Report Patient Name: ANNALISE GODFREY Unit No: [id number] EXAMS: CPT CODE: [id number] XR PELVIS 1/2 VIEWS 45930 (Continued) Orig Print D/T: S:08/06/2019 (07) [facility] NAME: ANNALISE GODFREY [address] [place] [address] PHYS: Sebastian Erazo MD : 1940 AGE: 78 SEX: M [place] [address] LOC: Y.305 APHONE #: [phone] EXAM DATE: 08/04/2019 STATUS: DIS IN FAX #: [phone] RAD #: D/C DT 08/05/2019 PAGE 2 Signed Report- XR PELVIS 1/2 [id number] 17:30:00 Patient Name: ANNALISE GODFREY Unit No: [id number] EXAMS: CPT CODE: [id number] XR PELVIS 1/2 VIEWS 59840 INTRAOPERATIVE LEG LENGTH FILM COMMENT: COMPARISON: No prior exams available. In progress right hip replacement is noted. AP PORTABLE RIGHT HIP COMMENT: The patient is status post joint replacementwhich is articulating normally. at 1730 Reported and signed by: Christopher Cornejo MD CC: Sebastian Chatman MD Technologist: REGINA RICH (RT.R) Transcribed D/ (173) [facility]: EDNA GODFREY [address] [facility] PHYS: Sebastian Erazo MD : 1940 AGE: 78 SEX: M [place] [address] LOC: Y.305 A PHONE #: [phone] EXAM DATE: 08/04/2019 STATUS: DIS IN FAX #: [phone] RAD #: D/C DT 08/05/2019 PAGE 1 Signed Report Patient Name: ANNALISE GODFREY Unit No: [id number] EXAMS: CPT CODE: [id number] XR PELVIS 1/2 VIEWS 18457 (Continued) Orig Print D/T: S: 08/06/2019 (0710) [facility] NAME: ANNALISE GODFREY [address] [facility] [address] PHYS: Sebastian Erazo MD : 1940 AGE: 78 SEX: [place], [place] [address] LOC: Y.305 A PHONE #: [phone] EXAM DATE: 08/04/2019 STATUS: DIS IN FAX #: [phone] RAD #: D/C DT 08/05/2019 PAGE 2 Signed Report GLYCOSYLATED HEMOGLOBIN (HA1C)2019-07-21 15:01:00 Test Item Value Reference Range Interpretation Comments GLYCOSYLATED 6.5 % 4.8-5.9 H Any condition t hat shortens HEMOGLOBIN (HA1C) erythocyte survival or (test code = GLYHGB) decreas esmean erythrocyte age (e.g., ben very from acute blood los s,hemolytic anemia) will fa lsely lower HGBA1c resultsr egardless of the method used . HGBA1c results from chong kirkpatrick HbSS, HbCC, and HbSc must be interpreted with cautiongiven th e pathological pr ocesses, including anemi a,increased red cell turnov er, transfusion req uirements, thatadversely i mpact HGBA1c as a marker of long-term glycemiccontrol . Alternative for ms of testing such as fructosaminesho uld be considered for these patients. GLYCOSYLATED HEMOGLOBIN (HA1C)2019-07-21 15:01:00 Test Item Value [...] GBA1c resultsregardle ss of the method used. HG BA1c results from patientswi th HbSS, HbCC, and HbSc must be interpreted wit h cautiongiven th e pathological pr ocesses, including anemi a,increased red cell turnov er, transfusion req uirements, thatadversely i mpact HGBA1c as a marker of long-term glycemiccontrol . Alternative for ms of testing such as fructosaminesho uld be considered for these patients.DONE A T: [facility] [address] [facility], [place], [place] [address] COMPREHENSIVE METABOLIC [id number] 13:00:00 Test Item Value Reference Range Interpretation [...] RATE (test code = GFR) mL/mi n/1.73 [id number] Range:Healthy Adults >90 mL/min/1.73 m2 For Chronic Kidney Disease: Stage II Mild Decrease i n GFR 60-90 Stage III Moderate Decrea se in GFR 30-59 St age IV Severe Decre ase in GFR 15-29 S tage V Kidney Failur e <15 CREATININE (test code 1.08 mg/dL 0.55-1.30 [...] TOTAL (test code = ALKP) CBC W/AUTO [id number] 12:50:00 Test Item Value Reference Range Interpretation [...] GBA1c resultsregardle ss of the method used. HG BA1c results from patientswi th HbSS, HbCC, and HbSc must be interpreted wit h cautiongiven th e pathological pr ocesses, including anemi a,increased red cell turnov er, transfusion req uirements, thatadversely i mpact HGBA1c as a marker of long-term glycemiccontrol . Alternative for ms of testing such as fructosaminesho uld be considered for these patients.DONE A T: [facility] [id number] , [place], [place] [address] GLYCOSYLATED HEMOGLOBIN (HA1C)2019-04-07 19:02:00 Test Item Value Reference Range Interpretation Comments GLYCOSYLATED 6.6 % 4.8-5.9 H Any condition t hat shortens HEMOGLOBIN (HA1C) erythocyte survival or (test code = GLYHGB) decreas esmean erythrocyte age (e.g., ben very from acute blood los s,hemolytic anemia) will fa lsely lower HGBA1c resultsr egardless of the method used . HGBA1c results from chong kirkpatrick HbSS, HbCC, and HbSc must be interpreted with cautiongiven th e pathological pr ocesses, including anemi a,increased red cell turnov er, transfusion req uirements, thatadversely i mpact HGBA1c as a marker of long-term glycemiccontrol . Alternative for ms of testing such as fructosaminesho uld be considered for these patients. COMPREHENSIVE METABOLIC [id number] 16:42:00 Test Item Value Reference Range Interpretation [...] RATE (test code = GFR) mL/mi n/1.73 [id number] Range:Healthy Adults >90 mL/min/1.73 m2 For Chronic Kidney Disease: Stage II Mild Decrease i n GFR 60-90 Stage III Moderate Decrea se in GFR 30-59 St age IV Severe Decre ase in GFR 15-29 St age V Kidney Failu re <15 CREATININE (test code 0.96 mg/dL 0.55-1.30 [...] TOTAL (test code = ALKP) CBC W/AUTO [id number] 16:07:00 Test Item Value Reference Range Interpretation [...] 0-0 N code = NRBC) CBC W/AUTO [id number] 16:07:00 Test Item Value Reference Range Interpretation [...] 0 % 0-0 N code = NRBC) Notes Date/Time Note Provider Source 2019-08-05 14:38:00-00:00 [facility] Discharge Summary REPORT#:[id number] REPORT STATUS: Signed DATE:08/05/19 TIME: 1438 PATIENT: ANNALISE GODFREY UNIT #: [id number] [facility] AGE: 78 SEX: M ATTEND: Lucas Chatman MD ADM AUTHOR: Reena Whipple * ALL edits or amendments must be made on the AdsIt/computer document * PCP PCP Discharge to: home General Information Date of discharge: 08/05/19 Hospital course: ADMISSION DATE: 08/04/2019 DISCHARGE DATE: 08/05/2019 ADMITTING DIAGNOSIS: Right hip osteoarthritis. PRIMARY DISCHARGE DIAGNOSIS: Right hip osteoarth alayna, M16.11. OPERATIVE PROCEDURES PERFORMED: On 08/04/2019, R ight total hip arthroplasty, [address]. HISTORY OF PRESENT ILLNESS: Mr. Godfrey is a 78-y ear-old male, who had been having severe pain involving his right hip. The pain was occurring on a daily basis. The pain had been refractory to extensive nonoperative treatment. Due to his progressive disabilit y and lack of response to nonoperative intervention, Mr. Godfrey is admitted for right total hip arthr oplasty. HOSPITAL COURSE: Mr. Godfrey was taken to the ope rative suite on the date of admission where he underwent a right total hip a rthroplasty without complications. Postoperatively, the leticia ent received a total of 24 hours of IV antibiotic therapy. On the date of discharge, hi s dressing is dry and intact. His leg lengths are equal. His distal neurovascu lar status is intact. His hemoglobin is 9.4. Mr. Godfrey will be discharged to home today. Off ice followup in 2 weeks. Outpatient physiotherapy has been prescribed. He is on aspirin for DVT prophylaxis. Appropriate pos toperative anterior total hip precautions have been instructed and she understands these. DISCHARGE MEDICATIONS: Please see discharge medi cation reconciliation sheet. CONDITION ON DISCHARGE: [facility] and he is completely asymptomatic. He is in stable conditi on at the time of discharge without questions or complaints. Med Rec Med Rec Discharge meds: Continue taking these medications: CELECOXIB (CeleBREX) 200 MG CAP 200 MILLIGRAM ORAL TWICE DAILY. FOLIC ACID (FOLIC ACID) 1 MG TAB 1 MILLIGRAM ORAL TWICE DAILY. metFORMIN (GLUCOPHAGE) 850 MG TAB 850 MILLIGRAM ORAL TWICE DAILY. ATORVASTATIN (LIPITOR) 10 MG TAB 10 MILLIGRAM ORAL BEDTIME. ASPIRIN (ASPIRIN) 325 MG TAB 325 MILLIGRAM ORAL BEDTIME. CETIRIZINE (ZyrTEC) 10 MG TAB 10 MILLIGRAM ORAL BEDTIME. PHENYLEPHRINE (MEDI-PHENYL) 5 MG TAB 10 MILLIGRAM ORAL BEDTIME. MAGNESIUM OXIDE (MAG-OXIDE) 400 MG TAB 400 MILLIGRAM ORAL BEDTIME. glipiZIDE XL (GLUCOTROL XL) 2.5 MG TAB.ER 2.5 MILLIGRAM ORAL DAILY. ALLOPURINOL (ZYLOPRIM) 300 MG TAB 300 MILLIGRAM ORAL DAILY. LOSARTAN/HCTZ (HYZAAR 50/12.5 MG) 50 MG-12.5 MG TAB 1 TABLET ORAL DAILY. [LITHOLYTE] 10 MILLIEQUIVALENT ORAL TWICE DAILY. traMADol/APAP (ULTRACET 37.5/325 MG) 37.5 MG-325 MG TAB 1-2 TABLET ORAL EVERY 6 HOURS NEEDED. as nee ded for PAIN Qty = 50 Instructions: TAKE 1-2 TABLETS BY MOUTH EVERY 6-8 HOURS NE EDED FOR PAIN KETOROLAC (TORADOL) 10 MG TAB 10 MILLIGRAM ORAL EVERY 6 HOURS. Qty = 20 Instructions: TAKE FOR 5 DAYS Discharge Instructions Wound/dressing care: Keep wound clean and dryDianna DR.'S DISCHARGE INSTRUCTIONS Equipment/supplies: Walker, ORDERED BY DR. MOSES ANTON Follow-up Appointments PCP: PCP: Undefined Provider Attending Physician: Attending Physician: Sebastian Chatman MD Follow up: In 1-2 weeks Special instructions: CALL OFFICE TO SCHEDULE FOLLOW UP APPOINTMENT at 1516 RPT #:[id number] END OF REPORT 2019-08-05 14:38:00-00:00 [facility]) Discharge Summary REPORT#:[id number] REPORT STATUS: Signed DATE:08/05/19 TIME: 1438 PATIENT: ANNALISE GODFREY UNIT #: [id number] ROOM/BED: Y.305-A : 40 AGE: 78 SEX: M ATTEND: Lucas Chatman MD ADM AUTHOR: Reena Whipple * ALL edits or amendments must be made on the AdsIt/computer document * PCP PCP Discharge to: home General Information Date of discharge: 08/05/19 Hospital course: ADMISSION DATE: 08/04/2019 DISCHARGE DATE: 08/05/2019 ADMITTING DIAGNOSIS: Right hip osteoarthritis. PRIMARY DISCHARGE DIAGNOSIS: Right hip osteoarth alayna, M16.11. OPERATIVE PROCEDURES PERFORMED: On 08/04/2019, R ight total hip arthroplasty, [address]. HISTORY OF PRESENT ILLNESS: Mr. Godfrey is a 78-y ear-old male, who had been having severe pain involving his right hip. The pain was occurring on a daily basis. The pain had been refractory to extensive nonoperative treatment. Due to his progressive disabilit y and lack of response to nonoperative intervention, Mr. Godfrey is admitted for right total hip arthr oplasty. HOSPITAL COURSE: Mr. Godfrey was taken to the ope rative suite on the date of admission where he underwent a right total hip a rthroplasty without complications. Postoperatively, the leticia ent received a total of 24 hours of IV antibiotic therapy. On the date of discharge, hi s dressing is dry and intact. His leg lengths are equal. His distal neurovascu lar status is intact. His hemoglobin is 9.4. Mr. Godfrey will be discharged to home today. Off ice followup in 2 weeks. Outpatient physiotherapy has been prescribed. He is on aspirin for DVT prophylaxis. Appropriate pos toperative anterior total hip precautions have been instructed and she understands these. DISCHARGE MEDICATIONS: Please see discharge medi cation reconciliation sheet. CONDITION ON DISCHARGE: His hemoglobin at discha e is 9.4 and he is completely asymptomatic. He is in stable conditi on at the time of discharge without questions or complaints. Med Rec Med Rec Discharge meds: Continue taking these medications: CELECOXIB (CeleBREX) 200 MG CAP 200 MILLIGRAM ORAL TWICE DAILY. FOLIC ACID (FOLIC ACID) 1 MG TAB 1 MILLIGRAM ORAL TWICE DAILY. metFORMIN (GLUCOPHAGE) 850 MG TAB 850 MILLIGRAM ORAL TWICE DAILY. ATORVASTATIN (LIPITOR) 10 MG TAB 10 MILLIGRAM ORAL BEDTIME. ASPIRIN (ASPIRIN) 325 MG TAB 325 MILLIGRAM ORAL BEDTIME. CETIRIZINE (ZyrTEC) 10 MG TAB 10 MILLIGRAM ORAL BEDTIME. PHENYLEPHRINE (MEDI-PHENYL) 5 MG TAB 10 MILLIGRAM ORAL BEDTIME. MAGNESIUM OXIDE (MAG-OXIDE) 400 MG TAB 400 MILLIGRAM ORAL BEDTIME. glipiZIDE XL (GLUCOTROL XL) 2.5 MG TAB.ER 2.5 MILLIGRAM ORAL DAILY. ALLOPURINOL (ZYLOPRIM) 300 MG TAB 300 MILLIGRAM ORAL DAILY. LOSARTAN/HCTZ (HYZAAR 50/12.5 MG) 50 MG-12.5 MG TAB 1 TABLET ORAL DAILY. [LITHOLYTE] 10 MILLIEQUIVALENT ORAL TWICE DAILY. traMADol/APAP (ULTRACET 37.5/325 MG) 37.5 MG-325 MG TAB 1-2 TABLET ORAL EVERY 6 HOURS NEEDED. as nee ded for PAIN Qty = 50 Instructions: TAKE 1-2 TABLETS BY MOUTH EVERY 6-8 HOURS NE EDED FOR PAIN KETOROLAC (TORADOL) 10 MG TAB 10 MILLIGRAM ORAL EVERY 6 HOURS. Qty = 20 Instructions: TAKE FOR 5 DAYS Discharge Instructions Wound/dressing care: Keep wound clean and dry, Dianna CHATMAN'S DISCHARGE INSTRUCTIONS Equipment/supplies: Walker, ORDERED BY DR. MOSES ANTON Follow-up Appointments PCP: PCP: Undefined Provider Attending Physician: Attending Physician: Sebastian Chatman MD Follow up: In 1-2 weeks Special instructions: CALL OFFICE TO SCHEDULE FOLLOW UP APPOINTMENT at 7070 Electronically Signed by Sebastian Chatman MD on at 1608 RPT #:[id number] END OF REPORT 2019-08-05 10:18:00-00:00 [facility]) Clinical Note REPORT#:[id number] REPORT STATUS: Signed DATE:08/05/19 TIME: 1018 PATIENT: ANNALISE GODFREY UNIT #: [id number] [facility] AGE: 78 SEX: M ATTEND: Lucas Chatman MD ADM AUTHOR: Sarabjit Hung MD * ALL edits or amendments must be made on the el ectronic/computer document * Clinical Note Note: [facility] Sarabjit finch M.D. (cell text [phone]) Assessment/Plan 1.) Anemia of acute blood loss- .Hgb 9.4, asympt omatic. 2.) S/p Right JERMAIN- .acute pain control. Anticoag ulation as per Dr. Chatman. 3.) Hypertension- .follow BP and hold Rxs if SBP <120. 4.) Diabetes-2 LUZ Hyperlipidemia Hx of Prostate cancer- .continue on Rx. * OK for DISCHARGE per Internal Medicine. Prior Events/Overnight: Uneventful. Chief Complaint: No significant complaints. Objective Vital Signs: Date Time Temp Pulse Resp B/P B/P Pulse O2 O2 F low FiO2 Mean Ox Delivery Rate 08/05 0711 98.4 71 15 111/61 77.5 99 Nasal cannula 08/05 0700 Nasal 3.344765 cannula 08/05 0412 97.3 86 19 95/52 70 99 Nasal cannula 08/05 0206 97 Nasal 3.323040 32 cannula 08/04 2220 97.5 89 19 94/52 70 98 Nasal cannula 08/04 2006 94 Nasal 3.391835 32 cannula 08/04 1931 97.9 90 18 94/52 68 96 Nasal cannula 08/04 1905 Nasal 3.928191 cannula 08/04 1547 96.4 86 16 122/65 84 100 Nasal cannula 08/04 1356 Nasal 3.409517 cannula 08/04 1311 100 Nasal 3.097951 32 cannula 08/04 1253 96.4 85 15 124/69 87.8 99 Nasal cannula 08/04 1230 87 20 126/72 96 Nasal 2.348021 cannula 08/04 1221 Nasal 2.787671 cannula 08/04 1215 97.2 89 20 117/68 97 Nasal 2.161752 cannula 08/04 1200 90 16 111/65 100 08/04 1150 Simple 8.295545 mask 08/04 1145 92 17 105/60 99 08/04 1141 97.4 94 16 108/59 98 Simple 8.530583 mask Gen: Alert, oriented, in mild discomfort Neck: No Masses, No Thyromegaly- CV: Regular Rate Rhythm / Edema- no significant Resp: Clear To Ascultation / Normal Respiratory Effort ABD: NonTender / NonDistended MS/Skin: No sign of compartment syndrome / +ankl e DF/PF / nl capillary refill of toes Other: Labs/X-ray: Laboratory Tests: 08/05 08/05 0502 0410 Chemistry Sodium (136 - 145 mmol/L) 137 Potassium (3.5 - 5.1 mmol/L) 4.2 Chloride (98 - 107 mmol/L) 101.0 Carbon Dioxide (21 - 32 mmol/L) 25.7 BUN (7 - 18 mg/dL) 24 H Creatinine (0.55 - 1.30 mg/dL) 1.15 Glomerular Filtr Rate (>60) 61.5 Glucose (70 - 110 mg/dL) 266 H POC Glucose (60 - 125 mg/dL) 258 H Calcium (8.2 - 10.1 mg/dL) 7.7 L Hematology Hgb (12 - 16 g/dL) 9.4 L Hct (37 - 47 %) 28.4 L Sarabjit Young M.D. at 1106 RPT #:[id number] END OF REPORT 2019-08-04 18:06:00-00:00 [facility] Clinical Note REPORT#:[id number] REPORT STATUS: Signed DATE:08/04/19 TIME: 1805 PATIENT: ANNALISE GODFREY UNIT #: [id number] [facility] AGE: 78 SEX: M ATTEND: Lucas Chatman MD ADM AUTHOR: Sarabjit Hung MD * ALL edits or amendments must be made on the el ectronic/computer document * Clinical Note Note: [facility] Sarabjit finch MD (cell text [phone]) Internal Medicine Consult at request of : Dr. Shara Chatman Chief Complaint: Right hip pain HPI: 78 yo M is now s/p Right Total Hip Arthropl asty (JERMAIN) by Dr. Chatman. Mr. Godfrey relates years of prog ressive right hip pain (recently severe), worse with activity, and achy and stiff at times in quality . He has failed conservative management. Comorbidities: see below. PmHx: .Type 2 diabetes, Hypertension, Hyperchole sterolemia, LUZ, Prostate cancer (new diagnosis), CVA in 2002, Fatty liver , History of kidney stones ALLERGY: Allergies: No Known Allergies (Coded, 04/07/19) Home Medications: Home Medications: traMADol/APAP (ULTRACET 37.5/325 MG) 1-2 TAB PO Q6H PRN PRN PAIN KETOROLAC (TORADOL) 10 MG PO Q6H CELECOXIB (CeleBREX) 200 MG PO BID FOLIC ACID 1 MG PO BID metFORMIN (GLUCOPHAGE) 850 MG PO BID ATORVASTATIN (LIPITOR) 10 MG PO BEDTIME ASPIRIN 325 MG PO BEDTIME CETIRIZINE (ZyrTEC) 10 MG PO BEDTIME PHENYLEPHRINE (MEDI-PHENYL) 10 MG PO BEDTIME MAGNESIUM OXIDE (MAG-OXIDE) 400 MG PO BEDTIME glipiZIDE XL (GLUCOTROL XL) 2.5 MG PO DAILY ALLOPURINOL (ZYLOPRIM) 300 MG PO DAILY LOSARTAN/HCTZ (HYZAAR 50/12.5 MG) 1 TAB PO DAILY [LITHOLYTE] 10 MEQ PO BID SgHx: .TURP on 06/16/19, tonsillectomy, bilatera l inguinal hernia, colon resection, bilateral cataract SHx: Tob: none FHx: .No significant hx of DVT/PE . Alcohol: none Drugs: none Lives: with family Vitals: Vital Signs Date Temp Pulse Resp B/P B/P Mean Pulse Ox FiO2 12/10 96.4-97.4 70-94 15-20 105-126/59-72 84-87 .8 96-100 32 Gen: Fatigued, in mild discomfort, nl nutrition. EYE: Nl lids conjunctiva. ENT: Nl ears Nose, nl lips,. Neck: Supple, nl thyroid, No masses. CV: Regular Rate Rhythm, no heave or significant murmur. Edema- none Feet toes normal temperature. RESP: Clear to Auscultation, normal Respiratory effort. ABD: Soft, NonDistended,. LYM: No significant cervical Lymphadenopathy. MS: No Clubbing, cyanosis, thigh is soft, dressi ng dry. NEURO: Nonfocal, grossly normal sensation of LE, +Ankle DF/PF . Preop Labs(07/21/19): CBC:. Hgb 13.3, Plt 383, CHEM: Na 139, K 4.5, Cr 1.08 (eGFR 66.1%), Hgb A1c 6.5%, Ekg: NSR (medium to high risk of complications or morbid ity) (major surgery) (IV sedative, meds) Assessment Plan 1.) Anemia of Acute Blood Loss- .will recheck to jorge. 2.) S/p Right JERMAIN- .acute pain control. Anticoag ulation as per Dr. Chatman. 3.) Hypertension- .follow BP and hold Rxs if SBP <120. 4.) Diabetes-2 LUZ Hyperlipidemia Hx of Prostate cancer- .continue on Rx. Sarabjit Young M.D. Thanks! at 2143 RPT #:[id number] END OF REPORT 2019-08-04 11:30:00-00:00 [id number] [facility] [place] [address] PATIENT NAME: ANNALISE GODFREY ADMIT DATE: 08/04 ACCOUNT NO: [id number] ROOM NO: [facility] AGE: 78 REPORT TYPE: OPERATIVE REPORT SEX: M ADMITTING PHYSICIAN:Sebastian Chatman MD ATTENDING PHYSICIAN:Sebastian Chatman MD OPERATION DATE: 08/04/2019 PREOPERATIVE DIAGNOSIS: Right hip osteoarthritis . POSTOPERATIVE DIAGNOSIS: Right hip osteoarthriti s, M16.11. PROCEDURE PERFORMED: [place]pl[place], [address]. IMPLANTS UTILIZED: DePuy total hip syste m, size 54 mm Gription cup, +4 neutral polyethylene liner, size 11 Corail femoral stem, 36 mm metal head, +1.5 neck standard offset. SURGEON: Sebastian Chatman MD MENU PLANNER: CHONG Santa. ANESTHESIA: General. ESTIMATED BLOOD LOSS: Less than 25 mL. CLINICAL INDICATIONS: Mr. Godfrey is a 78 -year-old male who has been refractory to extensive nonoperative treatment. He is admit annie for right total hip arthroplasty. PROCEDURE IN DETAIL: RIGHT TOTAL HIP ARTHROPLAST Y, [address]. Mr. Godfrey was brought in to the operative suite, at which time he was placed in supine position on the OR table. Routine monitor s were established. General anesthesia was delivered. After satisfactory ind uction of general anesthesia, the patient was placed in the left lateral decub itus position per Ms. Whipple, and pulses were checked and noted to be patent x 4. The right hip was then circumferentially prepped and draped in the usua l sterile fashion per Ms. Whipple. Standard anterolateral Oglesby a pproach was performed. Iliotibial band divided in line with the skin incision. The abdu ctors were taken sharply off insertion of the greater trochanter. Anterior ca psulotomy was performed. The femoral head was dislocated anteriorly. The femo ral neck was resected 15 mm proximal to lesser trochanter as per preoperativ e templating. The labrum was excised circumferentially from the acetabulum. C ircumferential acetabular retractors were placed. Sequential reaming was p erformed to a size 53 mm reamer. A 54 mm Gription cup was then pl aced in 40 degrees of abduction and 10 degrees of anteversion. A +4 neutral polyethylen e trial insert was placed. Attention was then turned to the proximal femur. Sequential broaching was PATIENT NAME: ANNALISE GODFREY [id number] performed to a size 11 broac h. Utilizing the broach as a trial prosthesis, a 36 mm hip +1.5 neck was placed, and the hip was reduced. Clinically yazdanism of both leg length and offset was present. No impin gement was seen. Appropriate soft tissue tensioning was noted. Intraoperative x-rays confirmed yazdanism of leg length and offset. The hip was dislocated. The broach was removed. The trial polyethylene insert was removed, and a formal polyethylene insert wa s placed. A size 11 Corail femoral stem was then placed into the proximal femur followed by application of a 36 mm hip, +1.5 neck. The hip was once again r educed. Copious lavage was performed. The abductors were meticulously repai red with a #5 Ethibond suture incorporating a transosseous suture technique. M edium Hemovac drain was then placed deep to the iliotibial band, and the ilio tibial band was closed with rceinf-dk-pedvg #5 Ethibond suture in a watertig ht fashion. Skin was closed with interrupted 0 Vicryl fo llowed by 2-0 Vicryl, followed by vertical mattress 4-0 nylon suture per Ms. Whipple. Sterile dressin g was then applied by Ms. Whipple. The patient was then extubated and taken to the recovery room awake and alert without any anesthetic or operative compli cations. At the end of the case, sponge and needle counts were correct x2. During the procedure, Ms. Whipple was inv aluable in positioning the patient and preparation and draping of the extremity. She wa s also responsible for providing surgical exposure throughout the proce dure, expedited as for the performance of the procedure as well as protection of neurovascular structures. Finally, she was responsible for closure of the postoperative incision and application of postoperative dressing. Dictated By: Sebastian Chatman MD WT: OP:ZAIRE/JAY/MEIR Conf#: [id number]/DID#: [id number] Authenticated by Sebastian Chatman MD On 9 04:26:37 PM at 1626 PATIENT NAME: ANNALISE GODFREY [id number] 2019-08-03 12:46:00-00:00 [id number] [facility] [place] [address] PATIENT NAME: ANNALISE GODFREY ADMIT DATE: ACCOUNT NO: [id number] ROOM NO: AGE: 78 REPORT TYPE: HISTORY AND PHYSICAL SEX: M ADMITTING PHYSICIAN:Sebastian Chatman MD ATTENDING PHYSICIAN:Sebastian Chatman MD ADMISSION DATE: 08/04/2019 ADMITTING DIAGNOSIS: Right hip osteoarthritis, M 16.11. HISTORY OF PRESENT ILLNESS: Mr. Godfrey is a 78-y ear-old male, who has been having progressive pain in his right hip for the past several years. He currently is experiencing pain on a geri y basis as well as significant pain at rest. His clinical as well as radiographic evalu ation revealed significant osteoarthritis of the right hip. His pain has persisted despite anti-inflammatori es, ambulatory aids, and physiotherapy. Due to his significant disability and lack of re sponse to nonoperative treatment, he is admitted for right total hip ar throplasty. PAST MEDICAL HISTORY: Notable for chronic back p ain, diabetes, cardiac arrhythmia, cerebrovascular disease, and urinary tract infections. PAST SURGICAL HISTORY: Previous surgeries includ e abdominal procedure, colectomy, tonsillectomy, and vasectomy. FAMILY HISTORY: Notable for diabetes, hypertensi on, and cerebrovascular disease. SOCIAL HISTORY: He is . 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 No alcohol or tobacco use is noted. MEDICATIONS: Consist of metformin, folic acid, a torvastatin, losartan, finasteride, aspirin, and cetirizine. ALLERGIES: NO ALLERGIES ARE LISTED. REVIEW OF SYSTEMS: Negative. PHYSICAL EVALUATION: VITAL SIGNS: He is 5 feet 10 inches tall, 81.8 k ilograms. HEENT: Within normal limits. CARDIAC: Regular rate and rhythm. No murmur. CHEST: Clear. ABDOMEN: Benign. BACK: No CVA tenderness. His distal neurovascula r status is intact. PATIENT NAME: ANNALISE GODFREY [id number] DIAGNOSTIC DATA: Radiographi c evaluation revealed significant osteoarthritis of the right hip. ASSESSMENT: Severe osteoarthritis, right hip. SURGICAL PLAN: Will be to proceed with a right t otal hip arthroplasty. I have gone over at length with the patient the associa annie risks involved with this procedure. He understands these include but not limited to bleeding, transfusion requirement, inf ection, neurovascular damage, persistent pain, loss of motion, need for further operative interventi on, leg length inequality, loosening of the prosthesis requiring possible r evision, painful scar, persistent limp, dislocation of prosthesis along with complications secondary to anesthesia. Mr. Godfrey further understan ds that there will be no guarantees or warranties that he will be pain free after the p rocedure. In addition, he understands that he will hav e a press-fit acetabular component of the press-fit femoral component. He understands that there are no guarantees or warranties that he will be pain free after the procedure. Mariam Godfrey accepts these risks and gives his informed consent to proceed. Dictated By: Sebastian Chatman MD WT: HP:DharaJUAN/JAY/MEIR Conf#: [id number]/DID#: [id number] Authenticated by Sebastian Chatman MD On 06:42:47 AM at 0643 PATIENT NAME: ANNALISE GODFREY [id number] 17:50:00-00:00 [id number] [place] [address] PATIENT NAME: ANNALISE GODFREY ADMIT DATE: ACCOUNT NO: [id number] ROOM NO: AGE: 78 REPORT TYPE: HISTORY AND PHYSICAL SEX: M ADMITTING PHYSICIAN:Sebastian Chatman MD ATTENDING PHYSICIAN:Sebastian Chatman MD ADMISSION DATE: 04/28/2019 ADMITTING DIAGNOSIS: Right hip osteoarthritis, M 16.11. HISTORY OF PRESENT ILLNESS: Mr. Godfrey is a 78-y ear-old male, who has been having progressive pain in his right hip. He has been experiencing pain on a daily basis. His pain has been refractor y to extensive nonoperative treatments including anti-inflammatories, ambulator y aids and physiotherapy. His clinical as well as radiographic evaluation revealed sign ificant osteoarthritis of the right hip. He is admitted for right total hip ar throplasty due to disabling pain. PAST MEDICAL HISTORY: Chronic back pain, diabete s, cardiac arrhythmia, cerebrovascular disease, and urinary tract infec tions. PAST SURGICAL HISTORY: Previous surgeries includ e abdominal procedure, colectomy, tonsillectomy, and vasectomy. FAMILY HISTORY: Diabetes, hypertension, and cere brovascular disease. SOCIAL HISTORY: He is . 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 MEDICATIONS: Consist of metformin, folic acid, a torvastatin, losartan, finasteride, aspirin, and cetirizine. ALLERGIES: NO ALLERGIES ARE LISTED. REVIEW OF SYSTEMS: Negative. PHYSICAL EXAMINATION: VITAL SIGNS: Demonstrate him to be 5 feet 10 inc hes tall. He weighs 81.8 kilograms. HEENT: Within normal limits. CARDIAC: Regular rate and rhythm. No murmur. CHEST: Clear. ABDOMEN: Benign. BACK: No CVA tenderness. PERTINENT ORTHOPEDIC EVALUATION: Leg lengths rev eal a 7-mm leg length inequality in the right hip. He has limited and painful rotation of the right hip. His distal neurovascular status is intact. PATIENT NAME: ANNALISE GODFREY [id number] DIAGNOSTIC DATA: Radiographic evaluation reveals severe osteoarthritis. ASSESSMENT: Right hip pain secondary to severe osteoarthritis. SURGICAL PLAN: Right total hip arthroplasty. I anne-[address] gone over at length with Mr. Godfrey, the associated risks involved with t his procedure. He understands these include but not limited to bleedin g, transfusion requirement, infection, neurovascular damage, leg length inequality, dis location of the prosthesis, loosening of the prosthesis requiring possible r evision, painful scar, persistent limp, deep vein thrombus leading to p ulmonary emboli along with complications secondary to anesthesia. Mr. Jeff duffy further understands that there are no guarantees or warranties that he wi ll be pain free after the procedure. He accepts these risks and gives his informed consent to proceed. Dictated By: Sebastian Chatman MD WT: HP:ZAIRE/JAY/MEIR Conf#: [id number]/DID#: [id number] cc: Sebastian Chatman MD Authenticated by Sebastian Chatman MD On 06:55:04 AM Electronically Signed by Sebastian Chatman MD on 0 04/24/19 at 0655 PATIENT NAME: ANNALISE GODFREY [id number] 14:23:00-00:00 [id number] [place] [address] PATIENT NAME: ANNALISE GODFREY ADMIT DATE: ACCOUNT NO: [id number] ROOM NO: AGE: 78 REPORT TYPE: ELECTROCARDIOGRAM SEX: M ADMITTING PHYSICIAN:Sebastian Chatman MD ATTENDING PHYSICIAN:Sebastian Chatman MD Order: [id number] Test Reason : PRE-OP CLEARANCE HTN Test Date/Time Stamp: SatApr 07 2019 14:23:50 Blood Pressure : / mmHG Vent. Rate : 071 BPM Atrial Rate : 071 BPM P-R Int : 144 ms QRS Dur : 074 ms QT Int : 386 ms P-R-T Axes : 067 023 045 degree s QTc Int : 419 ms Normal sinus rhythm Normal ECG No previous ECGs available Confirmed by WILLOW GARCIAS MD ([id number]) on 04/10/2019 9:48:15 AM Referred By: Sebastian Chatman Confirmed by:WILLOW GARCIAS MD Electronically Signed by Willow Garcias MD on 03/26 02/11 at 0948 PATIENT NAME: ANNALISE GODFREY [id number]
--- NOTE | 2023-03-22 21:49 | RAD REPORT ---
EXAM DESCRIPTION: RAD - Hip Left 2 View - 03/22/2023 9:31 pm CLINICAL HISTORY: Left hip pain FINDINGS: No fracture or dislocation is seen. Osteoporosis. No significant bone or joint abnormality noted
--- NOTE | 2023-03-22 23:45 | ER ---
Nurse's Notes [facility] Name: Jensen Wang Age: 82 yrs Sex: Male : 1940 Arrival Date: 03/22/2023 Time: 20:26 Bed 19 Private MD: Diagnosis: Low back pain with radiculopathy Presentation: 03/22 20:34 Chief complaint: EMS states: He's had some generalized lower extremity weakness and vc1 lower back and left hip pain for a few days. Today his left leg gave out and he fell to the floor. He was concerned he broke his hip but he can move all extremities. We gave him Toradol for a 8/10 pain and on arrival here his pain is now a 2/10. 20:34 Method Of Arrival: EMS: [facility] vc1 20:49 Coronavirus screen: Vaccine status: Patient reports receiving the 2nd dose of the covid cm10 vaccine. Ebola Screen: No symptoms or risks identified at this time. Initial Sepsis Screen: Does the patient meet any 2 criteria? No. Patient's initial sepsis screen is negative. Does the patient have a suspected source of infection? No. Patient's initial sepsis screen is negative. Risk Assessment: Do you want to hurt yourself or someone else? Patient reports no desire to harm self or others. Onset of symptoms was March 22, 2023. Care prior to arrival: Medication(s) given: Toradol IV initiated. 20 GA, in the right antecubital area. 20:49 Acuity: EDWIN 3 cm10 Historical: - Allergies: 20:51 No Known Allergies; cm10 - PMHx: 20:51 diabetes mellitus; Gout; Hypercholesterolemia; Hypertensive disorder; cm10 - Immunization history:: Adult Immunizations unknown. - Social history:: Smoking status: Patient denies any tobacco usage or history of. - Family history:: not pertinent. Screenin:[address] [facility] ED Fall Risk Assessment (Adult) History of falling in the last 3 months, cm10 including since admission Yes- fall prone (multiple falls) (3 pts) Confusion or Disorientation No (0 pts) Intoxicated or Sedated No (0 pts) Impaired Gait Yes (1 pt) Mobility Assist Device Used Yes (1 pt) Altered Elimination No (0 pt) Score/Fall Risk Level 3 or more points = High Risk Oriented to surroundings, Maintained a safe environment, Hourly rounding (assess needs \T\ fall precautionary measures) done. Abuse screen: Denies threats or abuse. Denies injuries from another. Nutritional screening: No deficits noted. Tuberculosis screening: No symptoms or risk factors identified. Assessment: 23:30 Reassessment: Patient and/or family updated on plan of care and expected duration. Pain ha1 level reassessed. Patient is alert, oriented x 3, equal unlabored respirations, skin warm/dry/pink. pain 8/10. 23:57 General: Appears in no apparent distress. comfortable, Behavior is calm, cooperative. cm10 Pain: Complains of pain in back. Neuro: No deficits noted. Level of Consciousness is awake, alert, obeys commands, Oriented to person, place, time, situation. Respiratory: No deficits noted. Airway is patent Respiratory effort is even, unlabored, Respiratory pattern is regular, symmetrical. Vital Signs: 20:49 BP 145 / 100; Pulse 86; Resp 18; Temp 97.1; Pulse Ox 98% on R/A; Weight 74.84 kg; cm10 Height 5 ft. 9 in. ; Pain 2/10; 20:52 BP 151 / 94; cm10 23:30 BP 162 / 95; Pulse 82; Resp 17 S; Pulse Ox 98% on R/A; ha1 20:49 Body Mass Index 24.37 (74.84 kg, 175.26 cm) cm10 20:49 Pain Scale: Adult cm10 ED Course: 20:33 Patient arrived in ED. ag3 20:38 Arias Benavidez MD is Attending Physician. rt 20:51 Triage completed. cm10 20:52 Arm band placed on Patient placed in waiting room. cm10 21:32 Hip Left 2 View XRAY In Process Unspecified. EDMS 23:58 Patient has correct armband on for positive identification. Provided Education on: N/A. cm10 23:58 No provider procedures requiring assistance completed. IV discontinued, intact, cm10 bleeding controlled, No redness/swelling at site. Pressure dressing applied. Administered Medications: 23:41 Drug: Sultana PO 10 mg-325 mg 1 tabs Route: PO; ha1 23:57 Follow up: Response: No adverse reaction cm10 23:41 Drug: Cyclobenzaprine PO 10 mg Route: PO; ha1 23:57 Follow up: Response: No adverse reaction cm10 Medication: 23:59 VIS not applicable for this client. cm10 Outcome: 23:44 Discharge ordered by . rt 23:58 Discharged to home via wheelchair, with family. cm10 23:58 Condition: good 23:58 Discharge instructions given to patient, family, Instructed on discharge instructions, follow up and referral plans. medication usage, Demonstrated understanding of instructions, follow-up care, medications, Prescriptions given X 2. 23:59 Patient left the ED. cm10 Signatures: Dispatcher [employer] EDMS Donna Garza 3 Marika Pritchtet RN RN vc1 Patsy Garcia RN RN ha1 Arias Benavidez MD MD rt Holley Felton RN RN cm10
--- NOTE | 2023-03-22 23:45 | EDPHYS ---
Physician Documentation [facility] Name: Jensen Wang Age: 82 yrs Sex: Male : 1940 Arrival Date: 03/22/2023 Time: 20:26 Bed 19 Private MD: ED Physician Arias Benavidez HPI: 03/23 01:34 This 82 yrs old Male presents to ER via EMS with complaints of Hip Pain, Fall Injury. rt 01:34 Patient presents to the ED with a left lower back pain that radiates down through his rt hip. He states that the pain acutely worsened today causing his leg to give out. He fell to his knees but denies any injury. He is concerned that he did break his hip. He states that his back pain has been pre-existing is not from the fall. Denies other acute complaints at this time. Pain is aching nature, nonradiating, moderate severity, no other aggravating or alleviating factors.. Historical: - Allergies: 03/22 20:51 No Known Allergies; cm10 - PMHx: 20:51 diabetes mellitus; Gout; Hypercholesterolemia; Hypertensive disorder; cm10 - Immunization history:: Adult Immunizations unknown. - Social history:: Smoking status: Patient denies any tobacco usage or history of. - Family history:: not pertinent. ROS: 03/23 01:34 Constitutional: Negative for fever, chills, and weight loss, Cardiovascular: Negative rt for chest pain, palpitations, and edema, Respiratory: Negative for shortness of breath, cough, wheezing, and pleuritic chest pain, Abdomen/GI: Negative for abdominal pain, nausea, vomiting, diarrhea, and constipation, Skin: Negative for injury, rash, and discoloration, Neuro: Negative for headache, weakness, numbness, tingling, and seizure, Psych: Negative for depression, anxiety, suicide ideation, homicidal ideation, and hallucinations. Back: Positive for pain at rest, radiated pain. MS/extremity: Positive for pain, Negative for injury or acute deformity. Exam: 01:34 Constitutional: This is a well developed, well nourished patient who is awake, alert, rt and in no acute distress. Head/Face: Normocephalic, atraumatic. Chest/axilla: Normal chest wall appearance and motion. Nontender with no deformity. No lesions are appreciated. Cardiovascular: Regular rate and rhythm with a normal S1 and S2. No gallops, murmurs, or rubs. Normal PMI, no JVD. No pulse deficits. Respiratory: Lungs have equal breath sounds bilaterally, clear to auscultation and percussion. No rales, rhonchi or wheezes noted. No increased work of breathing, no retractions or nasal flaring. Skin: Warm, dry with normal turgor. Normal color with no rashes, no lesions, and no evidence of cellulitis. MS/ Extremity: Pulses equal, no cyanosis. Neurovascular intact. Full, normal range of motion. Neuro: Awake and alert, GCS 15, oriented to person, place, time, and situation. Cranial nerves II-XII grossly intact. Motor strength 5/5 in all extremities. Sensory grossly intact. Cerebellar exam normal. Normal gait. Psych: Awake, alert, with orientation to person, place and time. Behavior, mood, and affect are within normal limits. 01:34 Respiratory: Tenderness to the left SI notch, no midline tenderness, no step. Vital Signs: 03/22 20:49 BP 145 / 100; Pulse 86; Resp 18; Temp 97.1; Pulse Ox 98% on R/A; Weight 74.84 kg; cm10 Height 5 ft. 9 in. ; Pain 2/10; 20:52 BP 151 / 94; cm10 23:30 BP 162 / 95; Pulse 82; Resp 17 S; Pulse Ox 98% on R/A; ha1 20:49 Body Mass Index 24.37 (74.84 kg, 175.26 cm) cm10 20:49 Pain Scale: Adult cm10 MDM: 20:59 Patient medically screened. rt 03/23 01:34 Differential diagnosis: Hip fracture, sciatica. Data reviewed: vital signs, nurses rt notes. Test considered but Not performed: MRI: No signs or symptoms suggestive of a cauda equina syndrome, spinal epidural abscess, MRIs not indicated.. Care significantly affected by the following chronic conditions: Diabetes. Counseling: I had a detailed discussion with the patient and/or guardian regarding: the historical points, exam findings, and any diagnostic results supporting the discharge/admit diagnosis, radiology results, the need for outpatient follow up. 03/22 20:59 Order name: Hip Left 2 View XRAY; Complete Time: 21:53 rt Administered Medications: 03/22 23:41 Drug: Monroe PO 10 mg-325 mg 1 tabs Route: PO; ha1 23:57 Follow up: Response: No adverse reaction cm10 23:41 Drug: Cyclobenzaprine PO 10 mg Route: PO; ha1 23:57 Follow up: Response: No adverse reaction cm10 Disposition Summary: 03/22/23 23:44 Discharge Ordered Location: Home rt Problem: new rt Symptoms: have improved rt Condition: Stable rt Diagnosis - Low back pain with radiculopathy rt Followup: rt - With: Private Physician - When: 2 - 3 days - Reason: Discharge Instructions: - Discharge Summary Sheet rt - Lumbosacral Radiculopathy rt Forms: - Medication Reconciliation Form rt - Thank You Letter rt - Antibiotic Education rt - Prescription Opioid Use rt - Patient Portal Instructions rt Prescriptions: - gabapentin 100 mg Oral capsule - take 1 capsule by ORAL route every 8 hours; 21 capsule; Refills: 0, Product rt Selection Permitted - Cyclobenzaprine 5 mg Oral Tablet - take 1 tablet by ORAL route 3 times per day As needed; 15 tablet; Refills: 0, rt Product Selection Permitted Signatures: Dispatcher [employer] Patsy Rinaldi RN RN ha1 Arias Benavidez MD MD rt Holley Felton RN RN cm10
[2023-03-22] MEDS ORDERED: CYCLOBENZAPRINE 10 MG TAB ONE (23:46)
[2023-03-22] MEDS ORDERED: HYDROCODONE/APAP 10/325 TAB ONE (23:46)
[2023-03-23 00:24] VITALS: TEMP 97.1; O2SAT 98
[2023-03-23 00:28] VITALS: BP 162/95
== END 2023-03-22 23:59 | disposition home or self-care (01) ==
LOC: SUPCPDRO 20:26 → ER 20:26
DX: M54.16 Radiculopathy, lumbar region (principal)
CPT/HCPCS: 99284